=== PATIENT | male | born 1935 | race Caucasian/White ===

== ENCOUNTER 2022-01-14 20:23 | Inpatient (IN) | payer MEDICARE ==
[2022-01-14] MEDS ORDERED: SODIUM CHLORIDE 0.9% 1,000 ML IV STA ×2 (21:33)
--- NOTE | 2022-01-14 22:00 | XR ---
EXAMINATION: XR chest 1V portable DATE AND TIME: 01/14/2022 9:43 PM CLINICAL INDICATION: Covid + TECHNIQUE: AP upright portable COMPARISON: None FINDINGS: Cardiac silhouette within normal limits. Blunted right cost phrenic angle and homogeneously added opacity at the right lower hemithorax consis tent with [id number] right pleural effusion, associated with partial right lower lobe airlessne ss, passive atelectasis versus infiltration. Remainder of the right lung is clear and well expanded. The entire left lung is clear and well-expanded, and the left pleural space is negative. The skeletal structures and soft tissues are negative for acute findings. IMPRESSION: Right lower parenchymal pleural process; would suggest short interval follow-up PA and lateral chest radiography.
--- NOTE | 2022-01-14 22:17 | ED ---
Recheck HPI - General Chief Complaint: Recheck/Abnormal Lab/Rx Stated Complaint: Covid +,High Blood Sugar Time Seen by Provider: 01/14/22 21:26 Source: EMS, RN notes reviewed, old records reviewed, Caregiver Mode of arrival: EMS Limitations: no limitations - History of Present Illness Initial Comments: This is a 86-year-old male to the emergency department for evaluation. Presents by EMS for known diagnosis of coronavirus and significantly uncontrolled blood sugar at an extended Care facility. A she'll himself is generally feeling weak and ill. But has no complaints of chest pain headache shortness of breath or abdominal pain. No nausea vomiting or diarrhea MD Complaint: abnormal lab (Elevated blood sugar), other (Known diagnosis of coronavirus) -: days(s) Returns Today for: Called Because of Abnormal Lab/Test, persistent/worsening pain related to initial visit Symptoms Since Prior Visit: worsening pain (Weakness) Context: called for abnormal lab result Associated Symptoms: chills, nausea Treatments Prior to Arrival: other medications - Related Data Home Medications Medication Instructions Recorded Confirmed Acetaminophen Tab [Tylenol] 650 mg PO Q4H PRN 01/14/22 01/14/22 Apixaban [Eliquis] 2.5 mg PO BID 01/14/22 01/14/22 Ascorbic Acid [Vitamin C] 500 mg PO DAILY 01/14/22 01/14/22 Cholecalciferol [Vitamin D3 (25 50 mcg PO DAILY 01/14/22 01/14/22 Mcg = 1000 Iu)] Digoxin [Lanoxin] 125 mcg PO DAILY@59901/14/22 01/14/22 Ferrous Sulfate [Iron] 325 mg PO DAILY 01/14/22 01/14/22 Glimepiride [Amaryl] 4 mg PO DAILY 01/14/22 01/14/22 Glucerna Shake 1 can PO TID 01/14/22 01/14/22 Insulin Lispro [humaLOG Kwikpen] See Protocol SQ ACHS 01/14/22 01/14/22 Levothyroxine Sodium [Synthroid] 100 mcg PO DAILY@59901/14/22 01/14/22 Linagliptin [Tradjenta] 5 mg PO DAILY 01/14/22 01/14/22 Lisinopril [Prinivil] 10 mg PO DAILY 01/14/22 01/14/22 Methyl Salicylate/Menth/Camph 1 patch TOPICAL DAILY 01/14/22 01/14/22 [Salonpas 3.1%-6.0%-10.0% Patch] Multivitamins, Thera [Multivitamin 1 tab PO DAILY 01/14/22 01/14/22 (formulary)] Nirmatrelvir/Ritonavir [Paxlovid 1 tab PO BID 01/14/22 01/14/22 Co-Pack (Eua)] Pravastatin Sodium [Pravachol] 40 mg PO HS 01/14/22 01/14/22 Propylene Glycol/Peg 400/Pf 1 drop BOTH EYES TID@0600,1400,2200 01/14/22 01/14/22 [Systane 0.3-0.4% Eye Drop] Pseudoephedrine HCl [Sudafed] 30 mg PO TID 01/14/22 01/14/22 Vit C/E/Zn/Coppr/Lutein/Zeaxan 1 cap PO DAILY 01/14/22 01/14/22 [Preservision Areds 2 Softgel] Zinc 50 mg PO DAILY 01/14/22 01/14/22 dexAMETHasone 6 mg PO DAILY 01/14/22 01/14/22 Allergies Allergy/AdvReac Type Severity Reaction Status Date / Time No Known Allergies Allergy Verified 01/14/22 22:58 Review of Systems ROS Statement: Those systems with pertinent positive or pertinent negative responses have been documented in the HPI. ROS Other: All systems not noted in ROS Statement are negative. Past Medical History Past Medical History: Atrial Fibrillation, Diabetes Mellitus, Hyperlipidemia Additional Past Medical History / Comment(s): dysphagia History of Any Multi-Drug Resistant Organisms: None Reported Past Psychological History: No Psychological Hx Reported Smoking Status: Never smoker Past Alcohol Use History: None Reported Past Drug Use History: None Reported General Exam Limitations: no limitations General appearance: alert, in no apparent distress Head exam: Present: atraumatic, normocephalic, normal inspection Eye exam: Present: normal appearance, PERRL, EOMI. Absent: scleral icterus, conjunctival injection, periorbital swelling ENT exam: Present: normal exam, mucous membranes dry Neck exam: Present: normal inspection. Absent: tenderness, meningismus, lymphadenopathy Respiratory exam: Present: normal lung sounds bilaterally. Absent: respiratory distress, wheezes, rales, rhonchi, stridor Cardiovascular Exam: Present: normal rhythm, tachycardia, normal heart sounds. Absent: systolic murmur, diastolic murmur, rubs, gallop, clicks GI/Abdominal exam: Present: soft, normal bowel sounds. Absent: distended, tenderness, guarding, rebound, rigid Extremities exam: Present: normal inspection, full ROM, normal capillary refill. Absent: tenderness, pedal edema, joint swelling, calf tenderness Back exam: Present: normal inspection Neurological exam: Present: alert, oriented X3, CN II-XII intact Psychiatric exam: Present: normal affect, normal mood Skin exam: Present: warm, dry, intact, normal color. Absent: rash Course Vital Signs 01/14/22 21:08 Temperature 98 F Pulse Rate 107 H Respiratory 16 Rate Blood Pressure 135/70 O2 Sat by Pulse 98 Oximetry - Reevaluation(s) Reevaluation #1: 01/14/22 23:10 Medical record is reviewed Reevaluation #2: 01/14/22 23:10 Patient informed of results here in the ER Reevaluation #3: 01/14/22 23:10 Patient has no change in symptoms no significant shortness of breath - Consultations Consultation #1: Spoke with Dr. Wolff for Dr. Linares who will admit this patient Medical Decision Making - Medical Decision Making 86 male with multiple complaints and medical comorbidities. Hyperglycemia significant no signs of acidosis. Patient will be placed on sliding scale for insulin IV hydration and monitoring of coronavirus pneumonia. - Lab Data Result diagrams: 01/14/22 21:55 01/14/22 21:55 Lab Results 01/14/22 01/14/22 01/14/22 Range/Units 21:55 21:55 21:55 WBC 2.3 L (3.8-10.6) k/uL RBC 3.43 L (4.30-5.90) m/uL Hgb 10.9 L (13.0-17.5) gm/dL Hct 34.7 L (39.0-53.0) % MCV 101.0 H (80.0-100.0) fL MCH 31.8 (25.0-35.0) pg MCHC 31.5 (31.0-37.0) g/dL RDW 14.7 (11.5-15.5) % Plt Count 159 (150-450) k/uL MPV 8.7 Neutrophils % 81 % Lymphocytes % 13 % Monocytes % 5 % Eosinophils % 0 % Basophils % 0 % Neutrophils # 1.9 (1.3-7.7) k/uL Lymphocytes # 0.3 L (1.0-4.8) k/uL Monocytes # 0.1 (0-1.0) k/uL Eosinophils # 0.0 (0-0.7) k/uL Basophils # 0.0 (0-0.2) k/uL Hypochromasia Slight Poikilocytosis Slight Macrocytosis Slight PT 9.6 (9.0-12.0) sec INR 0.9 (<1.2) APTT 22.3 (22.0-30.0) sec VBG pH (7.31-7.41) VBG pCO2 (37-51) mmHg VBG HCO3 (24-28) mmol/L Sodium 131 L (137-145) mmol/L Potassium 4.9 (3.5-5.1) mmol/L Chloride 98 (98-107) mmol/L Carbon Dioxide 22 (22-30) mmol/L Anion Gap 11 mmol/L BUN 57 H (9-20) mg/dL Creatinine 1.01 (0.66-1.25) mg/dL Est GFR (CKD-EPI)AfAm 78 (>60 ml/min/1.73 sqM) Est GFR (CKD-EPI)NonAf 68 (>60 ml/min/1.73 sqM) Glucose 599 H* (74-99) mg/dL Plasma Lactic Acid Zay (0.7-2.0) mmol/L Calcium 8.1 L (8.4-10.2) mg/dL Phosphorus 3.4 (2.5-4.5) mg/dL Magnesium 2.0 (1.6-2.3) mg/dL Total Bilirubin 0.4 (0.2-1.3) mg/dL AST 46 (17-59) U/L ALT 42 (4-49) U/L Alkaline Phosphatase 185 H (38-126) U/L Troponin I (0.000-0.034) ng/mL C-Reactive Protein 2.0 H (<1.0) mg/dL NT-Pro-B Natriuret Pep pg/mL Total Protein 6.4 (6.3-8.2) g/dL Albumin 3.5 (3.5-5.0) g/dL Acetone, Qual Negative (Negative) 01/14/22 01/14/22 01/14/22 Range/Units 21:55 21:55 21:55 WBC (3.8-10.6) k/uL RBC (4.30-5.90) m/uL Hgb (13.0-17.5) gm/dL Hct (39.0-53.0) % MCV (80.0-100.0) fL MCH (25.0-35.0) pg MCHC (31.0-37.0) g/dL RDW (11.5-15.5) % Plt Count (150-450) k/uL MPV Neutrophils % % Lymphocytes % % Monocytes % % Eosinophils % % Basophils % % Neutrophils # (1.3-7.7) k/uL Lymphocytes # (1.0-4.8) k/uL Monocytes # (0-1.0) k/uL Eosinophils # (0-0.7) k/uL Basophils # (0-0.2) k/uL Hypochromasia Poikilocytosis Macrocytosis PT (9.0-12.0) sec INR (<1.2) APTT (22.0-30.0) sec VBG pH (7.31-7.41) VBG pCO2 (37-51) mmHg VBG HCO3 (24-28) mmol/L Sodium (137-145) mmol/L Potassium (3.5-5.1) mmol/L Chloride (98-107) mmol/L Carbon Dioxide (22-30) mmol/L Anion Gap mmol/L BUN (9-20) mg/dL Creatinine (0.66-1.25) mg/dL Est GFR (CKD-EPI)AfAm (>60 ml/min/1.73 sqM) Est GFR (CKD-EPI)NonAf (>60 ml/min/1.73 sqM) Glucose (74-99) mg/dL Plasma Lactic Acid Zay 3.0 H* (0.7-2.0) mmol/L Calcium (8.4-10.2) mg/dL Phosphorus (2.5-4.5) mg/dL Magnesium (1.6-2.3) mg/dL Total Bilirubin (0.2-1.3) mg/dL AST (17-59) U/L ALT (4-49) U/L Alkaline Phosphatase (38-126) U/L Troponin I 0.057 H* (0.000-0.034) ng/mL C-Reactive Protein (<1.0) mg/dL NT-Pro-B Natriuret Pep 3780 pg/mL Total Protein (6.3-8.2) g/dL Albumin (3.5-5.0) g/dL Acetone, Qual (Negative) 01/14/22 Range/Units 21:55 WBC (3.8-10.6) k/uL RBC (4.30-5.90) m/uL Hgb (13.0-17.5) gm/dL Hct (39.0-53.0) % MCV (80.0-100.0) fL MCH (25.0-35.0) pg MCHC (31.0-37.0) g/dL RDW (11.5-15.5) % Plt Count (150-450) k/uL MPV Neutrophils % % Lymphocytes % % Monocytes % % Eosinophils % % Basophils % % Neutrophils # (1.3-7.7) k/uL Lymphocytes # (1.0-4.8) k/uL Monocytes # (0-1.0) k/uL Eosinophils # (0-0.7) k/uL Basophils # (0-0.2) k/uL Hypochromasia Poikilocytosis Macrocytosis PT (9.0-12.0) sec INR (<1.2) APTT (22.0-30.0) sec VBG pH 7.35 (7.31-7.41) VBG pCO2 40 (37-51) mmHg VBG HCO3 22 L (24-28) mmol/L Sodium (137-145) mmol/L Potassium (3.5-5.1) mmol/L Chloride (98-107) mmol/L Carbon Dioxide (22-30) mmol/L Anion Gap mmol/L BUN (9-20) mg/dL Creatinine (0.66-1.25) mg/dL Est GFR (CKD-EPI)AfAm (>60 ml/min/1.73 sqM) Est GFR (CKD-EPI)NonAf (>60 ml/min/1.73 sqM) Glucose (74-99) mg/dL Plasma Lactic Acid Zay (0.7-2.0) mmol/L Calcium (8.4-10.2) mg/dL Phosphorus (2.5-4.5) mg/dL Magnesium (1.6-2.3) mg/dL Total Bilirubin (0.2-1.3) mg/dL AST (17-59) U/L ALT (4-49) U/L Alkaline Phosphatase (38-126) U/L Troponin I (0.000-0.034) ng/mL C-Reactive Protein (<1.0) mg/dL NT-Pro-B Natriuret Pep pg/mL Total Protein (6.3-8.2) g/dL Albumin (3.5-5.0) g/dL Acetone, Qual (Negative) - EKG Data -: EKG Interpreted by Me (EKG is sinus rhythm 96 MD 215 QRS 94 QTC 376) - Radiology Data Radiology results: report reviewed (Chest x-ray does show pneumonia likely coronavirus pneumonia), image reviewed Disposition Clinical Impression: Fever, Coronavirus infection, Hyperglycemia, Pneumonia due to COVID-19 virus, Elevated troponin Disposition: ADMITTED IP TO THIS HOSP Condition: Fair Is patient prescribed a controlled substance at d/c from ED?: No Referrals: Mara Lopez MD [Primary Care Provider] - 1-2 days Time of Disposition: 23:15
[2022-01-14] MEDS ORDERED: KETOROLAC 15 MG/ML 1 ML VIAL IVP STA (22:20)
[2022-01-14 22:27] LABS: VBG PH 7.35 (7.31-7.41)
[2022-01-14 22:30] LABS: Basophils % (A) 0 %; Eosinophils % (A) 0 %; HCT 34.7 % (39.0-53.0); HGB 10.9 gm/dL (13.0-17.5); Hypochromasia Slight; Lymphocytes # (A) 0.3 k/uL (1.0-4.8); Lymphocytes % (A) 13 %; MCH 31.8 pg (25.0-35.0); MCHC 31.5 g/dL (31.0-37.0); Macrocytosis Slight; Mean Platelet Volume 8.7; Monocytes # (A) 0.1 k/uL (0-1.0); Monocytes % (A) 5 %; Neutrophils # (A) 1.9 k/uL (1.3-7.7); Neutrophils % (A) 81 %; Platelet Count 159 k/uL (150-450); Poikilocytosis Slight; RBC 3.43 m/uL (4.30-5.90); RDW 14.7 % (11.5-15.5); WBC 2.3 k/uL (3.8-10.6)
[2022-01-14] MEDS: ACETAMINOPHEN TAB 500 MG TAB PO STA ×2 (22:37→22:46)
[2022-01-14 22:46] LABS: ALT 42 U/L (4-49); AST 46 U/L (17-59); African American GFR (CKD) 78 (>60 ml/min/1.73 sqM); Albumin 3.5 g/dL (3.5-5.0); Alkaline Phosphatase 185 U/L (38-126); Anion Gap 11 mmol/L; Blood Urea Nitrogen 57 mg/dL (9-20); Calcium 8.1 mg/dL (8.4-10.2); Carbon Dioxide 22 mmol/L (22-30); Chloride 98 mmol/L (98-107); Non-African American GFR(CKD) 68 (>60 ml/min/1.73 sqM); Phosphorus 3.4 mg/dL (2.5-4.5); Potassium 4.9 mmol/L (3.5-5.1); Sodium 131 mmol/L (137-145); Total Bilirubin 0.4 mg/dL (0.2-1.3); Total Protein 6.4 g/dL (6.3-8.2)
[2022-01-14 22:50] LABS: INR 0.9 (<1.2); Partial Thromboplastin Time 22.3 sec (22.0-30.0); Prothrombin Time 9.6 sec (9.0-12.0)
[2022-01-14 23:11] LABS: Glucose 599 mg/dL (74-99)
[2022-01-14] MEDS ORDERED: IBUPROFEN 400 MG TAB PO PRN (23:12)
[2022-01-14] MEDS ORDERED: ACETAMINOPHEN TAB 325 MG TAB PO PRN (23:12)
[2022-01-14] MEDS ORDERED: SODIUM CHLORIDE 0.9% 500 ML 500 ML IV STA (23:12)
[2022-01-14] MEDS ORDERED: LORazepam 2 MG/ML INJ IV PRN (23:12)
[2022-01-14] MEDS ORDERED: NALOXONE 0.4 MG/ML 1 ML VIAL IV PRN (23:12)
[2022-01-14] MEDS ORDERED: INSULIN REGULAR 100 UNIT/ML VIAL (IV) IV ONE (23:12)
[2022-01-15 00:27] LABS: Glucose,Whole Blood 547 mg/dL (75-99)
[2022-01-15 01:23] LABS: Appearance,Urine Clear (Clear); Bilirubin,Urine Negative (Negative); Blood,Urine Negative (Negative); Color,Urine Light Yellow; Glucose,Urine (UA) 4+ (Negative); Ketones,Urine Negative (Negative); Leukocyte Esterase,Urine Negative (Negative); Nitrite,Urine Negative (Negative); PH, Urine 5.5 (5.0-8.0); Protein,Urine Trace (Negative); Specific Gravity,Urine 1.016 (1.001-1.035); Urobilinogen,Urine <2.0 mg/dL (<2.0)
[2022-01-15 01:49] LABS: Glucose,Whole Blood 401 mg/dL (75-99)
[2022-01-15] MEDS ORDERED: ACETAMINOPHEN TAB 325 MG TAB PO PRN (05:45)
[2022-01-15 06:04] LABS: Basophils % (A) 1 %; Eosinophils % (A) 0 %; HCT 31.4 % (39.0-53.0); HGB 10.2 gm/dL (13.0-17.5); Lymphocytes # (A) 0.5 k/uL (1.0-4.8); Lymphocytes % (A) 23 %; MCH 32.1 pg (25.0-35.0); MCHC 32.3 g/dL (31.0-37.0); MCV 99.5 fL (80.0-100.0); Macrocytosis Slight; Mean Platelet Volume 8.1; Monocytes # (A) 0.1 k/uL (0-1.0); Monocytes % (A) 6 %; Neutrophils # (A) 1.5 k/uL (1.3-7.7); Neutrophils % (A) 69 %; Platelet Count 119 k/uL (150-450); Poikilocytosis Slight; RBC 3.16 m/uL (4.30-5.90); RDW 14.6 % (11.5-15.5); WBC 2.2 k/uL (3.8-10.6)
[2022-01-15 06:09] LABS: Glucose,Whole Blood 392 mg/dL (75-99)
[2022-01-15 06:16] LABS: Calcium 7.7 mg/dL (8.4-10.2); Phosphorus 3.3 mg/dL (2.5-4.5); Potassium 4.7 mmol/L (3.5-5.1); Total Bilirubin 0.3 mg/dL (0.2-1.3); Total Protein 5.7 g/dL (6.3-8.2)
[2022-01-15] MEDS: LEVOTHYROXINE 100 MCG TAB PO SCH (06:44)
[2022-01-15] MEDS: DIGOXIN 125 MCG TAB PO SCH (06:44)
[2022-01-15] MEDS: INSULIN ASPART (NovoLOG) 100 UNIT/ML VIAL SQ SCH ×7 (06:44→21:27)
[2022-01-15] MEDS: ARTIFICIAL TEARS-HYPROMELLOSE DROPS 15 ML BTL BOTH EYES SCH ×3 (06:45→21:28)
[2022-01-15] MEDS: PANTOPRAZOLE 40 MG TABLET PO SCH (06:46)
[2022-01-15] MEDS ORDERED: INSULIN ASPART (NovoLOG) 100 UNIT/ML VIAL SQ SCH (07:30)
[2022-01-15] MEDS ORDERED: dexAMETHasone 2 MG TAB PO SCH (09:00)
[2022-01-15] MEDS ORDERED: NON FORMULARY DRUG (Glucerna Shake 1 CAN Ml) PO SCH (09:00)
[2022-01-15] MEDS: MULTIVITAMINS, THERA 1 EACH TAB PO SCH (10:01)
[2022-01-15] MEDS: CHOLECALCIFEROL 25 MCG (1000 IU) TABLET PO SCH (10:01)
[2022-01-15] MEDS: ZINC SULFATE 220 MG CAP PO SCH (10:01)
[2022-01-15] MEDS: LINAGLIPTIN 5 MG TABLET PO SCH (10:02)
[2022-01-15] MEDS: lisinopriL 10 MG TAB PO SCH (10:02)
[2022-01-15] MEDS: APIXABAN 2.5 MG TABLET PO SCH ×2 (10:02→21:27)
[2022-01-15] MEDS: FERROUS SULFATE 325 MG TAB PO SCH (10:02)
[2022-01-15] MEDS: RITONAVIR PO SCH ×2 (10:07→21:28)
[2022-01-15] MEDS: GLIMEPIRIDE 4 MG TAB PO SCH (10:07)
[2022-01-15] MEDS: VIT A,C & E-LUTEIN-MINERALS 1 EACH TAB PO SCH (10:07)
[2022-01-15] MEDS: ASCORBIC ACID 500 MG TAB PO SCH (10:07)
[2022-01-15] MEDS: NIRMATRELVIR PO SCH ×2 (10:07→21:28)
[2022-01-15 10:34] LABS: Glucose,Whole Blood 323 mg/dL (75-99)
[2022-01-15] MEDS: INSULIN DETEMIR (LEVEMIR) 100 UNIT/ML SYR SQ SCH (11:18)
--- NOTE | 2022-01-15 11:23 | CA ---
Transthoracic Echo Report Name: Florentino Gu Age: 86 Gender: M : 1935 Exam Date: 01/15/2022 09:55 Exam Location: [facility] Ht (in): Wt (lb): Ordering Physician: Marcia Kim Attending/Referring Phys: Conveyor Worker Kristin Cates RDCS Procedure CPT: Indications: elevated troponin Cardiac Hx: PT IS COVID POSITIVE. Technical Quality: Fair Contrast 1: Total Dose (mL): Contrast 2: Total Dose (mL): MEASUREMENTS (Male / Female) Normal Values 2D ECHO LV Diastolic Diameter PLAX 3.7 cm 4.2 - 5.9 / 3.9 - 5.3 cm LV Systolic Diameter PLAX 3.0 cm IVS Diastolic Thickness 1.8 cm 0.6 - 1.0 / 0.6 - 0.9 cm LVPW Diastolic Thickness 1.6 cm 0.6 - 1.0 / 0.6 - 0.9 cm LV Relative Wall Thickness 0.9 RV Internal Dim ED PLAX 5.4 cm LA Systolic Diameter LX 3.6 cm 3.0 - 4.0 / 2.7 - 3.8 cm M-MODE Aortic Root Diameter MM 2.6 cm LA Systolic Diameter MM 4.1 cm LA Ao Ratio MM 1.6 DOPPLER AV Peak Velocity 411.9 cm/s AV Peak Gradient 67.9 mmHg AV Mean Velocity 289.5 cm/s AV Mean Gradient 38.7 mmHg AV Velocity Time Integral 98.8 cm LVOT Peak Velocity 58.9 cm/s LVOT Peak Gradient 1.4 mmHg MV Peak Velocity 178.8 cm/s MV Peak Gradient 12.8 mmHg MV Mean Velocity 94.4 cm/s MV Mean Gradient 4.7 mmHg MV Velocity Time Integral 48.1 cm MV Area PHT 2.6 cm??? Mitral E Point Velocity 58.2 cm/s Mitral A Point Velocity 146.0 cm/s Mitral E to A Ratio 0.4 MV Deceleration Time 293.5 ms FINDINGS Left Ventricle Left ventricular ejection fraction is estimated at 50-55%. Moderately increased left ventricular wall thickness. Right Ventricle Normal right ventricular size and function. Right Atrium Normal right atrial size. Left Atrium Moderate left atrial dilatation. Mitral Valve 4.7mmHg. Mild mitral regurgitation. Aortic Valve Severe aortic stenosis, peak gradient 68 mmHg, mean gradient 39 mmHg, mild-to- moderate aortic regurgitation. Tricuspid Valve Structurally normal tricuspid valve. Pulmonic Valve Pulmonic valve not well visualized. Pericardium Normal pericardium. Aorta Aortic root and proximal ascending aorta not well visualized. CONCLUSIONS #1. Moderate concentric left ventricular hypertrophy with near normal ejection fraction of about 50%. #2. Calcified mitral valve with the mild to moderate gradient. #3. Calcified aortic valve with severe stenosis Previewed by: Dr. Jeyson Roberts MD (Electronically Signed) Final Date: 15 January 2022 11:22
[2022-01-15 11:44] LABS: Glucose,Whole Blood 301 mg/dL (75-99)
--- NOTE | 2022-01-15 12:28 | P.HPIM ---
History of Present Illness H&P Date: 01/15/22 HISTORY OF PRESENT ILLNESS This is an 86-year-old male patient of Dr. Hughes with past medical history of Diabetes mellitus type 2, hypertension, hyperlipidemia, paroxysmal atrial fibrillation, dysphagia, polio affecting the right side. Patient was treated at [facility] after a fall where he laid on the ground for 3 days. Police had to break into his home to get him out. There was loss of consciousness and he had hit his head. Patient was treated at [facility] and then transferred to [facility] for subacute rehab. Patient was subsequently found to be positive test for Covid 19 and was started on Paxlovid, dexamethasone, vitamin C and zinc. Patient subsequently developed a high blood sugar which registered as "HI" on 2 draws, patient received additional 12 units of Humulin insulin at suppertime but again when rechecked CBG was high and patient was transferred into the hospital for further evaluation. Patient denies any symptoms of Covid. Patient was found to be afebrile, heart rate 107, blood pressure 135/70, pulse ox 90% on room air. EKG sinus rhythm WBC 2.3, hemoglobin 10.9, platelet count 159. INR 0.9. Venous pH 7.35, venous pCO2 40, bicarbonate 22. Sodium 131, potassium 4.9, chloride 98, CO2 22, BUN 57 creatinine 1.01. Blood sugar 599. Lactic acid 3, calcium 8.1. Magnesium 2.0. Total bilirubin 0.4, AST 46, ALT 42, alkaline phosphatase 185. Troponins were 0.057, 0.056 and 0.058. C-reactive protein 2.0. ProBNP 3780. Albumin 3.5. Urinalysis was glucose to 4+ no sign of infection. Acetone was negative. Rotavirus PCR detected. Chest x-ray reveals right lower potential mild pleural process was suggestion interval follow-up. Echocardiogram reveals moderate concentric left hypertrophy ejection fraction 50%, [id number] mitral regurgitation, severe aortic stenosis. Patient was admitted to the cardiac stepdown unit, patient started on Levemir and continued on Paxlovid, dexamethasone which will be decreased to 4 mg daily, vitamin C and zinc, consult with cardiology for elevated troponins, pulmonary medicine for Covid and [facility] Center[facility] consult added for lower extremity wounds present on admission, REVIEW OF SYSTEMS Constitutional: No fever, no chills, no night sweats. No weight change. No we akness, fatigue or lethargy. No daytime sleepiness. EENT: No headache. No blurred vision or double vision, no loss of vision. No loss of Hearing, no ringing in the ears, no dizziness. No nasal drainage or congestion. No epistaxis. No sore throat. Lungs: No shortness of breath, cough, no sputum production. No wheezing. Cardiovascular: No chest pain, no lower extremity edema. No palpitations. No paroxysmal nocturnal dyspnea. No orthopnea. No lightheadedness or dizziness. No syncopal episodes. Abdominal: No abdominal pain. No nausea, vomiting. No diarrhea. No constipation. No bloody or tarry stools. No loss of appetite. Genitourinary: No dysuria, increased frequency, urgency. No urinary retention. Musculoskeletal: No myalgias. No muscle weakness, no gait dysfunction, no stanton quent falls. No back pain. No neck pain. Integumentary: Chronic wounds, no lesions. No rash or pruritus. No unusual bruising. No change in hair or nails. Neurologic: No aphasia. No facial droop. No change in mentation. No head injury. No headache. No paralysis. No paresthesia. Psychiatric: No depression. No anxiety. No mood swings. Endocrine: Reports abnormal blood sugars. No weight change. No excessive sweating or thirst. No cold intolerance. SOCIAL HISTORY Patient is a lifelong nonsmoker, no alcohol use. He is single and has no children. 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 Patient has a total of 7 brothers and 2 sisters all are .. PHYSICAL EXAMINATION Gen: This is an 86-year-old male. He is resting but appears to be comfortable and in no acute distress. HEENT: Head is atraumatic, normocephalic. Pupils equal, round. Sclerae is anicteric. NECK: Supple. No JVD. No lymphadenopathy. No thyromegaly. LUNGS: Clear to auscultation. No wheezes or rhonchi. No intercostal retractions. HEART: Regular rate and rhythm. No murmur. ABDOMEN: Soft. Bowel sounds are present. No masses. No tenderness. EXTREMITIES: wounds to the bilateral lower extremities, chronic stasis dermatitis, wound to the right shoulder. Please see nursing documentation for details. No pedal edema. NEUROLOGICAL: Patient is awake, alert and oriented x3. Cranial nerves 2 through 12 are grossly intact. 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 ASSESSMENT AND PLAN 1. Hyperosmolar hyperglycemic state in a patient with diabetes mellitus type 2 secondary to steroids. Patient will be started on Levemir 15 units daily along with NovoLog 10 units before meals and at bedtime along with NovoLog scale before meals and at bedtime, glimepiride 4 mg daily, Tradjenta 5 mg daily. (Dexamethasone decreased). 2. Covid 19 positive. Patient was started on Paxlovid, dexamethasone, vitamin C, vitamin D and zinc at [facility]. Dexamethasone will be decreased to 4 mg daily, consult with Pulmonary Medicine. 3. Hypertension. Continue lisinopril 10 mg daily. 4. Hyperlipidemia. Patient continued on Pravastatin mg at . 5. Paroxysmal atrial fibrillation. continue patient on eliquis 2.5 mg twice daily, digoxin 125 g daily. 6. Dysphagia with moderate protein calorie malnutrition. Patient is on a pured diet with nectar thick liquids and continue protein supplements. 7. Polio affecting right. 8. Chronic stasis dermatitis and ulcers to the bilateral lower extremities. Consult with wound center. 9. GI prophylaxis. Protonix. 10. DVT prophylaxis. Eliquis. Patient will be admitted to the hospital for a minimum of 2 night stay. DISCHARGE PLAN Return to [facility]. PT, OT and social work consults. Impression and plan of care have been directed as dictated by the signing physician. Kori Martinez nurse practitioner acting as scribe for signing physician. Past Medical History Past Medical History: Atrial Fibrillation, Diabetes Mellitus, Hyperlipidemia Additional Past Medical History / Comment(s): dysphagia, polio History of Any Multi-Drug Resistant Organisms: None Reported Past Surgical History: Orthopedic Surgery Additional Past Surgical History / Comment(s): feet and carpal tunnel Additional Past Anesthesia/Blood Transfusion Reaction / Comment(s): patient unaware Past Psychological History: No Psychological Hx Reported Smoking Status: Never smoker Past Alcohol Use History: None Reported Past Drug Use History: None Reported Medications and Allergies Home Medications Medication Instructions Recorded Confirmed Type Acetaminophen Tab [Tylenol] 650 mg PO Q4H PRN 06/09/22 06/09/22 History Apixaban [Eliquis] 2.5 mg PO BID 01/14/22 01/14/22 History Ascorbic Acid [Vitamin C] 500 mg PO DAILY 01/14/22 01/14/22 History Cholecalciferol [Vitamin D3 (25 50 mcg PO DAILY 01/14/22 01/14/22 History Mcg = 1000 Iu)] Digoxin [Lanoxin] 125 mcg PO DAILY@0600 01/14/22 01/14/22 History Ferrous Sulfate [Iron] 325 mg PO DAILY 01/14/22 01/14/22 History Glimepiride [Amaryl] 4 mg PO DAILY 01/14/22 01/14/22 History Glucerna Shake 1 can PO TID 01/14/22 01/14/22 History Insulin Lispro [humaLOG Kwikpen] See Protocol SQ ACHS 01/14/22 01/14/22 History Levothyroxine Sodium [Synthroid] 100 mcg PO DAILY@0600 01/14/22 01/14/22 History Linagliptin [Tradjenta] 5 mg PO DAILY 01/14/22 01/14/22 History Lisinopril [Prinivil] 10 mg PO DAILY 01/14/22 01/14/22 History Methyl Salicylate/Menth/Camph 1 patch TOPICAL DAILY 01/14/22 01/14/22 History [Salonpas 3.1%-6.0%-10.0% Patch] Multivitamins, Thera [Multivitamin 1 tab PO DAILY 01/14/22 01/14/22 History (formulary)] Nirmatrelvir/Ritonavir [Paxlovid 1 tab PO BID 01/14/22 01/14/22 History Co-Pack (Eua)] Pravastatin Sodium [Pravachol] 40 mg PO HS 01/14/22 01/14/22 History Propylene Glycol/Peg 400/Pf 1 drop BOTH EYES TID@0600,1400,2200 01/14/22 01/14/22 History [Systane 0.3-0.4% Eye Drop] Pseudoephedrine HCl [Sudafed] 30 mg PO TID 01/14/22 01/14/22 History Vit C/E/Zn/Coppr/Lutein/Zeaxan 1 cap PO DAILY 01/14/22 01/14/22 History [Preservision Areds 2 Softgel] Zinc 50 mg PO DAILY 01/14/22 01/14/22 History dexAMETHasone 6 mg PO DAILY 01/14/22 01/14/22 History Allergies Allergy/AdvReac Type Severity Reaction Status Date / Time No Known Allergies Allergy Verified 01/14/22 22:58 Physical Exam Vitals: Vital Signs Temp Pulse Pulse Resp BP BP Pulse Ox 01/15/22 04:00 97.7 F 85 14 132/64 98 01/15/22 02:04 87 16 122/62 99 01/15/22 00:33 90 18 124/62 100 01/14/22 23:35 97.4 F L 86 18 114/57 100 01/14/22 21:08 98 F 107 H 16 135/70 98 Intake and Output 01/14/22 01/15/22 01/15/22 22:59 06:59 14:59 Intake Total 0 Balance 0 Intake: Oral 0 Other: Voiding Method Urinal Diaper # Voids 1 Weight 64.41 kg 64.41 kg Results CBC & Chem 7: 01/15/22 05:46 01/15/22 05:46 Labs: Abnormal Lab Results - Last 24 Hours (Table) 01/14/22 01/14/22 01/14/22 Range/Units 21:55 21:55 21:55 WBC 2.3 L (3.8-10.6) k/uL RBC 3.43 L (4.30-5.90) m/uL Hgb 10.9 L (13.0-17.5) gm/dL Hct 34.7 L (39.0-53.0) % MCV 101.0 H (80.0-100.0) fL Plt Count (150-450) k/uL Lymphocytes # 0.3 L (1.0-4.8) k/uL VBG HCO3 (24-28) mmol/L Sodium 131 L (137-145) mmol/L Carbon Dioxide (22-30) mmol/L BUN 57 H (9-20) mg/dL Glucose 599 H* (74-99) mg/dL POC Glucose (mg/dL) (75-99) mg/dL Plasma Lactic Acid Zay 3.0 H* (0.7-2.0) mmol/L Calcium 8.1 L (8.4-10.2) mg/dL Alkaline Phosphatase 185 H (38-126) U/L Troponin I (0.000-0.034) ng/mL C-Reactive Protein 2.0 H (<1.0) mg/dL Total Protein (6.3-8.2) g/dL Albumin (3.5-5.0) g/dL Urine Protein (Negative) Urine Glucose (UA) (Negative) Coronavirus (PCR) (Not Detectd) 01/14/22 01/14/22 01/15/22 Range/Units 21:55 21:55 00:26 WBC (3.8-10.6) k/uL RBC (4.30-5.90) m/uL Hgb (13.0-17.5) gm/dL Hct (39.0-53.0) % MCV (80.0-100.0) fL Plt Count (150-450) k/uL Lymphocytes # (1.0-4.8) k/uL VBG HCO3 22 L (24-28) mmol/L Sodium (137-145) mmol/L Carbon Dioxide (22-30) mmol/L BUN (9-20) mg/dL Glucose (74-99) mg/dL POC Glucose (mg/dL) 547 H (75-99) mg/dL Plasma Lactic Acid Zay (0.7-2.0) mmol/L Calcium (8.4-10.2) mg/dL Alkaline Phosphatase (38-126) U/L Troponin I 0.057 H* (0.000-0.034) ng/mL C-Reactive Protein (<1.0) mg/dL Total Protein (6.3-8.2) g/dL Albumin (3.5-5.0) g/dL Urine Protein (Negative) Urine Glucose (UA) (Negative) Coronavirus (PCR) (Not Detectd) 01/15/22 01/15/22 01/15/22 Range/Units 00:38 01:03 01:05 WBC (3.8-10.6) k/uL RBC (4.30-5.90) m/uL Hgb (13.0-17.5) gm/dL Hct (39.0-53.0) % MCV (80.0-100.0) fL Plt Count (150-450) k/uL Lymphocytes # (1.0-4.8) k/uL VBG HCO3 (24-28) mmol/L Sodium (137-145) mmol/L Carbon Dioxide (22-30) mmol/L BUN (9-20) mg/dL Glucose (74-99) mg/dL POC Glucose (mg/dL) (75-99) mg/dL Plasma Lactic Acid Zay (0.7-2.0) mmol/L Calcium (8.4-10.2) mg/dL Alkaline Phosphatase (38-126) U/L Troponin I 0.056 H* (0.000-0.034) ng/mL C-Reactive Protein (<1.0) mg/dL Total Protein (6.3-8.2) g/dL Albumin (3.5-5.0) g/dL Urine Protein Trace H (Negative) Urine Glucose (UA) 4+ H (Negative) Coronavirus (PCR) Detected A (Not Detectd) 01/15/22 01/15/22 01/15/22 Range/Units 01:37 01:45 05:46 WBC (3.8-10.6) k/uL RBC (4.30-5.90) m/uL Hgb (13.0-17.5) gm/dL Hct (39.0-53.0) % MCV (80.0-100.0) fL Plt Count (150-450) k/uL Lymphocytes # (1.0-4.8) k/uL VBG HCO3 (24-28) mmol/L Sodium (137-145) mmol/L Carbon Dioxide (22-30) mmol/L BUN (9-20) mg/dL Glucose (74-99) mg/dL POC Glucose (mg/dL) 401 H (75-99) mg/dL Plasma Lactic Acid Zay 2.3 H* (0.7-2.0) mmol/L Calcium (8.4-10.2) mg/dL Alkaline Phosphatase (38-126) U/L Troponin I 0.058 H* (0.000-0.034) ng/mL C-Reactive Protein (<1.0) mg/dL Total Protein (6.3-8.2) g/dL Albumin (3.5-5.0) g/dL Urine Protein (Negative) Urine Glucose (UA) (Negative) Coronavirus (PCR) (Not Detectd) 01/15/22 01/15/22 01/15/22 Range/Units 05:46 05:46 06:08 WBC 2.2 L (3.8-10.6) k/uL RBC 3.16 L (4.30-5.90) m/uL Hgb 10.2 L (13.0-17.5) gm/dL Hct 31.4 L (39.0-53.0) % MCV (80.0-100.0) fL Plt Count 119 L (150-450) k/uL Lymphocytes # 0.5 L (1.0-4.8) k/uL VBG HCO3 (24-28) mmol/L Sodium 135 L (137-145) mmol/L Carbon Dioxide 21 L (22-30) mmol/L BUN 54 H (9-20) mg/dL Glucose 368 H (74-99) mg/dL POC Glucose (mg/dL) 392 H (75-99) mg/dL Plasma Lactic Acid Zay (0.7-2.0) mmol/L Calcium 7.7 L (8.4-10.2) mg/dL Alkaline Phosphatase 146 H (38-126) U/L Troponin I (0.000-0.034) ng/mL C-Reactive Protein (<1.0) mg/dL Total Protein 5.7 L (6.3-8.2) g/dL Albumin 3.0 L (3.5-5.0) g/dL Urine Protein (Negative) Urine Glucose (UA) (Negative) Coronavirus (PCR) (Not Detectd) Thrombosis Risk Factor Assmnt - Choose All That Apply Any of the Below Risk Factors Present?: No Other Risk Factors: No Other congenital or acquired thrombophilia - If yes, enter type in comment: No Thrombosis Risk Factor Assessment Level: Very Low Risk
--- NOTE | 2022-01-15 12:28 | P.CRDCN ---
History of Present Illness History of present illness: HISTORY OF PRESENTING ILLNESS This is a pleasant 86-year-old male past medical history significant for paroxysmal atrial fibrillation on Eliquis, type 2 diabetes, hypertension, dyslipidemia. We have been asked to see in consultation for abnormal troponins. Patient presents emergency department for extended care facility due to abnormal labs and hyperglycemia. Patient was recently diagnosed with covid- 19, he has been having symptoms of generalized weakness, fatigue. He denies symptoms of shortness of breath, chest pain, lightheadedness or dizziness. He denies any history of coronary disease, [place], stroke. He denies any tobacco use. Troponins were drawn in the ER which was mildly abnormal, 0.053. Patient's blood sugar on admission 599. DIAGNOSTICS EKG reveals sinus rhythm, first-degree AV block, heart rate 96, nonspecific ST ST-T wave abnormalities.. Telemetry tracings indicate sinus rhythm heart rate in 80s-90s Chest xray right lower lobe hemithorax opacity consistent with mild to moderate pleural effusion, associated with depression and right lower lobe infiltration Laboratory reviewed, WBC 2.2, hemoglobin 10.2, platelets 119, sodium 135, potassium 4.7, BUN 54, serum creatinine 0.9, magnesium 2.0 Echocardiogram revealed 50-55%, moderately increased left ventricular hypertrophy, severe aortic stenosis with a peak/mean gradient 16 mmHg/39 mmHg, mild to moderate aortic regurgitation, mild to moderate mitral regurgitation Current home cardiac medications include digoxin 125mcg daily, lisinopril 10 mg daily, pravastatin 40 mg nightly, Eliquis 2.5 mg twice a day. REVIEW OF SYSTEMS At the time of my exam: CONSTITUTIONAL: Denies fever or chills. CARDIOVASCULAR: Denies chest pain, shortness of breath, orthopnea, PND or palpitations. RESPIRATORY: Denies cough. GASTROINTESTINAL: Denies abdominal pain, diarrhea, constipation, nausea or vomiting. MUSCULOSKELETAL: Denies myalgias. NEUROLOGIC: Denies numbness, tingling, headacbe or weakness. ENDOCRINE: Denies fatigue, weight change, polydipsia or polyurina. GENITOURINARY: Denies burning, hematuria or urgency with micturation. HEMATOLOGIC: Denies history of anemia or bleeding. PHYSICAL EXAMINATION Blood pressure 132/64, heart rate 85, afebrile, saturation 90% room air CONSTITUTIONAL: No apparent distress. HEENT: Head is normocephalic. No JVD. CHEST EXAMINATION: Lungs are diminished to auscultation. No chest wall tenderness is noted on palpation or with deep breathing. HEART EXAMINATION: Regular rate and rhythm. S1, S2 heard. Systolic murmur noted ABDOMEN: Soft, nontender. Positive bowel sounds. EXTREMITIES: 2+ peripheral pulses, no lower extremity edema and no calf tenderness. NEUROLOGIC EXAMINATION: Patient is awake, alert and oriented x3. ASSESSMENT Hyperglycemia Covid-19 infection Elevated troponin, not consistent with ACS, possibly related to aortic stenosis and covid-19 infection Pancytopenia Severe aortic stenosis Mild to moderate aortic regurgitation Mild to moderate mitral regurgitation Paroxysmal atrial fibrillation on Eliquis Type 2 diabetes Hypertension Dyslipidemia. PLAN 2D echocardiogram reviewed Continue home cardiac medications Recommend close follow up as an outpatient for further management of aortic stenosis as an outpatient We will follow the patient as needed. Please reconsult if needed Nurse practitioner note has been reviewed by physician. Signing provider agrees with the documented findings, assessment, and plan of care. Past Medical History Past Medical History: Atrial Fibrillation, Diabetes Mellitus, Hyperlipidemia Additional Past Medical History / Comment(s): dysphagia, polio History of Any Multi-Drug Resistant Organisms: None Reported Past Surgical History: Orthopedic Surgery Additional Past Surgical History / Comment(s): feet and carpal tunnel Additional Past Anesthesia/Blood Transfusion Reaction / Comment(s): patient unaware Past Psychological History: No Psychological Hx Reported Smoking Status: Never smoker Past Alcohol Use History: None Reported Past Drug Use History: None Reported Medications and Allergies Home Medications Medication Instructions Recorded Confirmed Type Acetaminophen Tab [Tylenol] 650 mg PO Q4H PRN 01/14/22 01/14/22 History Apixaban [Eliquis] 2.5 mg PO BID 01/14/22 01/14/22 History Ascorbic Acid [Vitamin C] 500 mg PO DAILY 01/14/22 01/14/22 History Cholecalciferol [Vitamin D3 (25 50 mcg PO DAILY 01/14/22 01/14/22 History Mcg = 1000 Iu)] Digoxin [Lanoxin] 125 mcg PO DAILY@0600 01/14/22 01/14/22 History Ferrous Sulfate [Iron] 325 mg PO DAILY 01/14/22 01/14/22 History Glimepiride [Amaryl] 4 mg PO DAILY 01/14/22 01/14/22 History Glucerna Shake 1 can PO TID 01/14/22 01/14/22 History Insulin Lispro [humaLOG Kwikpen] See Protocol SQ ACHS 01/14/22 01/14/22 History Levothyroxine Sodium [Synthroid] 100 mcg PO DAILY@0600 01/14/22 01/14/22 History Linagliptin [Tradjenta] 5 mg PO DAILY 01/14/22 01/14/22 History Lisinopril [Prinivil] 10 mg PO DAILY 01/14/22 01/14/22 History Methyl Salicylate/Menth/Camph 1 patch TOPICAL DAILY 01/14/22 01/14/22 History [Salonpas 3.1%-6.0%-10.0% Patch] Multivitamins, Thera [Multivitamin 1 tab PO DAILY 01/14/22 01/14/22 History (formulary)] Nirmatrelvir/Ritonavir [Paxlovid 1 tab PO BID 01/14/22 01/14/22 History Co-Pack (Eua)] Pravastatin Sodium [Pravachol] 40 mg PO HS 01/14/22 01/14/22 History Propylene Glycol/Peg 400/Pf 1 drop BOTH EYES TID@0600,1400,2200 01/14/22 01/14/22 History [Systane 0.3-0.4% Eye Drop] Pseudoephedrine HCl [Sudafed] 30 mg PO TID 01/14/22 01/14/22 History Vit C/E/Zn/Coppr/Lutein/Zeaxan 1 cap PO DAILY 01/14/22 01/14/22 History [Preservision Areds 2 Softgel] Zinc 50 mg PO DAILY 01/14/22 01/14/22 History dexAMETHasone 6 mg PO DAILY 01/14/22 01/14/22 History Allergies Allergy/AdvReac Type Severity Reaction Status Date / Time No Known Allergies Allergy Verified 01/14/22 22:58 Physical Exam Vitals: Vital Signs Temp Pulse Pulse Resp BP BP Pulse Ox 01/15/22 04:00 97.7 F 85 14 132/64 98 01/15/22 02:04 87 16 122/62 99 01/15/22 00:33 90 18 124/62 100 01/14/22 23:35 97.4 F L 86 18 114/57 100 01/14/22 21:08 98 F 107 H 16 135/70 98 Intake and Output 01/14/22 01/15/22 01/15/22 22:59 06:59 14:59 Intake Total 0 Balance 0 Intake: Oral 0 Other: Voiding Method Urinal Diaper # Voids 1 Weight 64.41 kg 64.41 kg Results 01/15/22 05:46 01/15/22 05:46 Cardiac Enzymes 01/14/22 01/14/22 01/15/22 Range/Units 21:55 21:55 01:05 AST 46 (17-59) U/L Troponin I 0.057 H* 0.056 H* (0.000-0.034) ng/mL 01/15/22 01/15/22 Range/Units 05:46 05:46 AST 36 (17-59) U/L Troponin I 0.058 H* (0.000-0.034) ng/mL Coagulation 01/14/22 Range/Units 21:55 PT 9.6 (9.0-12.0) sec APTT 22.3 (22.0-30.0) sec CBC 01/14/22 01/15/22 Range/Units 21:55 05:46 WBC 2.3 L 2.2 L (3.8-10.6) k/uL RBC 3.43 L 3.16 L (4.30-5.90) m/uL Hgb 10.9 L 10.2 L (13.0-17.5) gm/dL Hct 34.7 L 31.4 L (39.0-53.0) % Plt Count 159 119 L (150-450) k/uL Comprehensive Metabolic Panel 01/14/22 01/15/22 Range/Units 21:55 05:46 Sodium 131 L 135 L (137-145) mmol/L Potassium 4.9 4.7 (3.5-5.1) mmol/L Chloride 98 105 (98-107) mmol/L Carbon Dioxide 22 21 L (22-30) mmol/L BUN 57 H 54 H (9-20) mg/dL Creatinine 1.01 0.98 (0.66-1.25) mg/dL Glucose 599 H* 368 H (74-99) mg/dL Calcium 8.1 L 7.7 L (8.4-10.2) mg/dL AST 46 36 (17-59) U/L ALT 42 35 (4-49) U/L Alkaline Phosphatase 185 H 146 H (38-126) U/L Total Protein 6.4 5.7 L (6.3-8.2) g/dL Albumin 3.5 3.0 L (3.5-5.0) g/dL Current Medications Generic Name Dose Route Start Last Admin Trade Name Freq PRN Reason Stop Dose Admin Acetaminophen 650 mg 01/15/22 05:45 Acetaminophen Tab 325 Mg Tab PO Q4H PRN Pain Apixaban 2.5 mg 01/15/22 09:00 Apixaban 2.5 Mg Tablet PO BID [facility] Protocol Artificial Tears 1 drops 01/15/22 06:00 01/15/22 06:45 Artificial Tears-Hypromellose Drops 15 Ml Btl BOTH EYES 1 drops TID@0600,1400,2200 [facility] Administration Ascorbic Acid 500 mg 01/15/22 09:00 Ascorbic Acid 500 Mg Tab PO DAILY [facility] Cholecalciferol 50 mcg 01/15/22 09:00 Cholecalciferol 25 Mcg (1000 Iu) Tablet PO DAILY [facility] Dexamethasone 6 mg 01/15/22 09:00 Dexamethasone 2 Mg Tab PO DAILY [facility] Digoxin 125 mcg 01/15/22 06:00 01/15/22 06:44 Digoxin 125 Mcg Tab PO 125 mcg DAILY@0600 [facility] Administration Ferrous Sulfate 325 mg 01/15/22 09:00 Ferrous Sulfate 325 Mg Tab PO DAILY [facility] Glimepiride 4 mg 01/15/22 09:00 Glimepiride 4 Mg Tab PO DAILY [facility] Ibuprofen 400 mg 01/14/22 23:12 Ibuprofen 400 Mg Tab PO Q6HR PRN Mild Pain or Fever > 100.5 Insulin Aspart 0 unit 01/15/22 07:30 01/15/22 06:41 Insulin Aspart (Novolog) 100 Unit/Ml Vial SQ Not Given AC-TID [facility] Protocol Insulin Aspart 10 unit 01/15/22 07:30 01/15/22 06:44 Insulin Aspart (Novolog) 100 Unit/Ml Vial SQ 10 unit ACHS [facility] Administration Levothyroxine Sodium 100 mcg 01/15/22 06:00 01/15/22 06:44 Levothyroxine 100 Mcg Tab PO 100 mcg DAILY@0600 [facility] Administration Linagliptin 5 mg 01/15/22 09:00 Linagliptin 5 Mg Tablet PO DAILY [facility] Lisinopril 10 mg 01/15/22 09:00 Lisinopril 10 Mg Tab PO DAILY [facility] Lorazepam 0.5 mg 01/14/22 23:12 Lorazepam 2 Mg/Ml Inj IV Q6HR PRN Anxiety Multivitamins 1 each 01/15/22 09:00 Multivitamins, Thera 1 Each Tab PO DAILY [facility] Multivitamins/Minerals 1 each 01/15/22 09:00 Vit A,C & [id number] 1 Each Tab PO DAILY [facility] Naloxone HCl 0.2 mg 01/14/22 23:12 Naloxone 0.4 Mg/Ml 1 Ml Vial IV Q2M PRN Opioid Reversal Patient's Own ( 1 tab 01/15/22 09:00 Nirmatrelvir/ PO Ritonavir [Paxlovid BID [facility] Co-Pack (Eua)] 1 Each Tablet) Pantoprazole Sodium 40 mg 01/15/22 07:30 01/15/22 06:46 Pantoprazole 40 Mg Tablet PO 40 mg [id number] [facility] Administration Pravastatin Sodium 40 mg 01/15/22 21:00 Pravastatin Sodium 40 Mg Tab PO HS [facility] Zinc Sulfate 220 mg 01/15/22 09:00 Zinc Sulfate 220 Mg Cap PO DAILY [facility] Intake and Output 01/14/22 01/15/22 01/15/22 22:59 06:59 14:59 Intake Total 0 Balance 0 Intake: Oral 0 Other: Voiding Method Urinal Diaper # Voids 1 Weight 64.41 kg 64.41 kg 01/15/22 05:46 01/15/22 05:46
--- NOTE | 2022-01-15 12:36 | P.CNPUL ---
History of Present Illness Consult date: 01/15/22 Chief complaint: COVID 19 History of present illness: 86-year-old male patient came into the emergency department because of hyperglycemia and the patient was apparently positive for COVID 19. Per EMS, the patient had significant controlled blood sugar and the extended care facility where he resides. The patient denied having any worsening shortness of breath. Denies having any cough or sputum production. No nausea vomiting or abdominal pain. The patient is known to have diabetes, hypothyroidism and hypertension. He was apparently receiving Paxlovid on outpatient basis along with Decadron 6 mg by mouth daily. Recurrent pulse ox on room air is 98% and the patient is not showing any signs of respiratory distress. The chest x-ray is showing no acute abnormalities. No airspace disease or infiltrates have been noted on chest x-ray. The blood work showed a white cell count of 2.2 with a hemoglobin of 10.2 and a platelet count of 119. The coagulation profile was normal. The blood work showed a BUN of 54 with a creatinine of 0.9. Sodium is 135 with a potassium level of 4.7. Lactic acid level was 3.0 time of admission and it dropped down to 1.3. Electrolytes were normal. Troponin was 0.05 respectively 2. Blood sugar was as high as 599 and currently is down to 368. COVID 19 by PCR was again positive. Acetone was negative. Liver function tests were essentially within normal limits. The patient was offered Levemir insulin for blood sugar control 15 units daily along with 10 units of NovoLog with meals and is sinus care coverage. Is currently on Decadron 4 mg by mouth daily. The inflammatory markers have not been checked at this point in time. D-dimer has not been checked. Review of Systems At the time of my exam: CONSTITUTIONAL: Denies fever or chills. CARDIOVASCULAR: Denies chest pain, shortness of breath, orthopnea, PND or palpitations. RESPIRATORY: Denies cough. GASTROINTESTINAL: Denies abdominal pain, diarrhea, constipation, nausea or vomiting. MUSCULOSKELETAL: Denies myalgias. NEUROLOGIC: Denies numbness, tingling, headacbe or weakness. ENDOCRINE: Denies fatigue, weight change, polydipsia or polyurina. GENITOURINARY: Denies burning, hematuria or urgency with micturation. HEMATOLOGIC: Denies history of anemia or bleeding. Past Medical History Past Medical History: Atrial Fibrillation, Diabetes Mellitus, Hyperlipidemia Additional Past Medical History / Comment(s): dysphagia, polio History of Any Multi-Drug Resistant Organisms: None Reported Past Surgical History: Orthopedic Surgery Additional Past Surgical History / Comment(s): feet and carpal tunnel Additional Past Anesthesia/Blood Transfusion Reaction / Comment(s): patient unaware Past Psychological History: No Psychological Hx Reported Smoking Status: Never smoker Past Alcohol Use History: None Reported Past Drug Use History: None Reported Medications and Allergies Home Medications Medication Instructions Recorded Confirmed Type Acetaminophen Tab [Tylenol] 650 mg PO Q4H PRN 01/14/22 01/14/22 History Apixaban [Eliquis] 2.5 mg PO BID 01/14/22 01/14/22 History Ascorbic Acid [Vitamin C] 500 mg PO DAILY 01/14/22 01/14/22 History Cholecalciferol [Vitamin D3 (25 50 mcg PO DAILY 01/14/22 01/14/22 History Mcg = 1000 Iu)] Digoxin [Lanoxin] 125 mcg PO DAILY@0600 01/14/22 01/14/22 History Ferrous Sulfate [Iron] 325 mg PO DAILY 01/14/22 01/14/22 History Glimepiride [Amaryl] 4 mg PO DAILY 01/14/22 01/14/22 History Glucerna Shake 1 can PO TID 01/14/22 01/14/22 History Insulin Lispro [humaLOG Kwikpen] See Protocol SQ ACHS 01/14/22 01/14/22 History Levothyroxine Sodium [Synthroid] 100 mcg PO DAILY@0600 01/14/22 01/14/22 History Linagliptin [Tradjenta] 5 mg PO DAILY 01/14/22 01/14/22 History Lisinopril [Prinivil] 10 mg PO DAILY 01/14/22 01/14/22 History Methyl Salicylate/Menth/Camph 1 patch TOPICAL DAILY 01/14/22 01/14/22 History [Salonpas 3.1%-6.0%-10.0% Patch] Multivitamins, Thera [Multivitamin 1 tab PO DAILY 01/14/22 01/14/22 History (formulary)] Nirmatrelvir/Ritonavir [Paxlovid 1 tab PO BID 01/14/22 01/14/22 History Co-Pack (Eua)] Pravastatin Sodium [Pravachol] 40 mg PO HS 01/14/22 01/14/22 History Propylene Glycol/Peg 400/Pf 1 drop BOTH EYES TID@0600,1400,2200 01/14/22 01/14/22 History [Systane 0.3-0.4% Eye Drop] Pseudoephedrine HCl [Sudafed] 30 mg PO TID 01/14/22 01/14/22 History Vit C/E/Zn/Coppr/Lutein/Zeaxan 1 cap PO DAILY 01/14/22 01/14/22 History [Preservision Areds 2 Softgel] Zinc 50 mg PO DAILY 01/14/22 01/14/22 History dexAMETHasone 6 mg PO DAILY 01/14/22 01/14/22 History Allergies Allergy/AdvReac Type Severity Reaction Status Date / Time No Known Allergies Allergy Verified 01/14/22 22:58 Physical Exam Vitals: Vital Signs Temp Pulse Pulse Resp BP BP Pulse Ox 01/15/22 04:00 97.7 F 85 14 132/64 98 01/15/22 02:04 87 16 122/62 99 01/15/22 00:33 90 18 124/62 100 01/14/22 23:35 97.4 F L 86 18 114/57 100 01/14/22 21:08 98 F 107 H 16 135/70 98 Intake and Output 01/14/22 01/15/22 01/15/22 22:59 06:59 14:59 Intake Total 0 Balance 0 Intake: Oral 0 Other: Voiding Method Urinal Diaper # Voids 1 1 Weight 64.41 kg 64.41 kg Gen: This is an 86-year-old male. He is resting but appears to be comfortable and in no acute distress. HEENT: Head is atraumatic, normocephalic. Pupils equal, round. Sclerae is anicteric. NECK: Supple. No JVD. No lymphadenopathy. No thyromegaly. LUNGS: Clear to auscultation. No wheezes or rhonchi. No intercostal retractions. HEART: Regular rate and rhythm. No murmur. ABDOMEN: Soft. Bowel sounds are present. No masses. No tenderness. EXTREMITIES: wounds to the bilateral lower extremities, chronic stasis dermatitis, wound to the right shoulder. Please see nursing documentation for details. No pedal edema. NEUROLOGICAL: Patient is awake, alert and oriented x3. Cranial nerves 2 through 12 are grossly intact. 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 Results - Laboratory Findings CBC and BMP: 01/15/22 05:46 01/15/22 05:46 PT/INR, D-dimer PT 9.6 sec (9.0-12.0) 01/14/22 21:55 INR 0.9 (<1.2) 01/14/22 21:55 Abnormal lab findings: Abnormal Labs 01/14/22 01/14/22 01/14/22 21:55 21:55 21:55 WBC 2.3 L RBC 3.43 L Hgb 10.9 L Hct 34.7 L MCV 101.0 H Plt Count Lymphocytes # 0.3 L VBG HCO3 Sodium 131 L Carbon Dioxide BUN 57 H Glucose 599 H* POC Glucose (mg/dL) Plasma Lactic Acid Zay 3.0 H* Calcium 8.1 L Alkaline Phosphatase 185 H Troponin I C-Reactive Protein 2.0 H Total Protein Albumin Urine Protein Urine Glucose (UA) Coronavirus (PCR) 01/14/22 01/14/22 01/15/22 21:55 21:55 00:26 WBC RBC Hgb Hct MCV Plt Count Lymphocytes # VBG HCO3 22 L Sodium Carbon Dioxide BUN Glucose POC Glucose (mg/dL) 547 H Plasma Lactic Acid Zay Calcium Alkaline Phosphatase Troponin I 0.057 H* C-Reactive Protein Total Protein Albumin Urine Protein Urine Glucose (UA) Coronavirus (PCR) 01/15/22 01/15/22 01/15/22 00:38 01:03 01:05 WBC RBC Hgb Hct MCV Plt Count Lymphocytes # VBG HCO3 Sodium Carbon Dioxide BUN Glucose POC Glucose (mg/dL) Plasma Lactic Acid Zay Calcium Alkaline Phosphatase Troponin I 0.056 H* C-Reactive Protein Total Protein Albumin Urine Protein Trace H Urine Glucose (UA) 4+ H Coronavirus (PCR) Detected A 01/15/22 01/15/22 01/15/22 01:37 01:45 05:46 WBC RBC Hgb Hct MCV Plt Count Lymphocytes # VBG HCO3 Sodium Carbon Dioxide BUN Glucose POC Glucose (mg/dL) 401 H Plasma Lactic Acid Zay 2.3 H* Calcium Alkaline Phosphatase Troponin I 0.058 H* C-Reactive Protein Total Protein Albumin Urine Protein Urine Glucose (UA) Coronavirus (PCR) 01/15/22 01/15/22 01/15/22 05:46 05:46 06:08 WBC 2.2 L RBC 3.16 L Hgb 10.2 L Hct 31.4 L MCV Plt Count 119 L Lymphocytes # 0.5 L VBG HCO3 Sodium 135 L Carbon Dioxide 21 L BUN 54 H Glucose 368 H POC Glucose (mg/dL) 392 H Plasma Lactic Acid Zay Calcium 7.7 L Alkaline Phosphatase 146 H Troponin I C-Reactive Protein Total Protein 5.7 L Albumin 3.0 L Urine Protein Urine Glucose (UA) Coronavirus (PCR) 01/15/22 01/15/22 10:25 11:41 WBC RBC Hgb Hct MCV Plt Count Lymphocytes # VBG HCO3 Sodium Carbon Dioxide BUN Glucose POC Glucose (mg/dL) 323 H 301 H Plasma Lactic Acid Zay Calcium Alkaline Phosphatase Troponin I C-Reactive Protein Total Protein Albumin Urine Protein Urine Glucose (UA) Coronavirus (PCR) Assessment and Plan Plan: COVID 19 infection, was being treated with Paxlovid and Decadron on an outpatient basis, no indication for pneumonia with hypoxemia this point in time and the patient presented to the hospital because of hyperglycemia, which could be potentially steroid-induced. Diabetes mellitus with a component of steroid-induced hyperglycemia Dehydration, could be related to hyperglycemia History of atrial fibrillation rate is controlled and the patient is on long- term medical condition with Eliquis, current rhythm is sinus Hyperlipidemia Hypertension History of polio Severe aortic stenosis with a preserved LV function. The patient has a mean gradient of 39 and a peak gradient of 68 across the aortic valve. Pancytopenia, rule out underlying bone marrow suppression/mild dysplasia/myelofibrosis Patient resides in an extended care facility Plan Stop the Decadron. I personally do not see any indication for Decadron. The patient has been fully vaccinated and the patient does not have any hypoxemia for now. I reviewed the chest x-ray and there is no clear indication for pneumonia and the patient's sister says is stable for now. Decadron has induced some hyperglycemia on this patient which ended up resulting into this current hospitalization. However, the patient may complete the course of Paxlovid Continue blood sugar management per medicine. IV fluids and the patient received 1.5 L bolus and currently the patient is on a maintenance of 100s an hour Check inflammatory markers including LDH, CRP and d-dimer is Repeat chest x-ray in the morning Dropped IV fluids to 50 mL an hour of normal saline May go back to ECF in a.m. if no changes.
[2022-01-15] MEDS: SODIUM CHLORIDE 0.9% 1,000 ML IV SCH (12:40)
[2022-01-15 15:49] LABS: C Reactive Protein 1.2 mg/dL (<1.0)
[2022-01-15 16:44] LABS: Glucose,Whole Blood 220 mg/dL (75-99)
[2022-01-15 20:25] LABS: Glucose,Whole Blood 368 mg/dL (75-99)
[2022-01-15] MEDS: PRAVASTATIN SODIUM 40 MG TAB PO SCH (21:27)
[2022-01-16] MEDS: SODIUM CHLORIDE 0.9% 1,000 ML IV SCH (04:19)
[2022-01-16 06:26] LABS: Glucose,Whole Blood 105 mg/dL (75-99)
[2022-01-16] MEDS: PANTOPRAZOLE 40 MG TABLET PO SCH (06:55)
[2022-01-16] MEDS: DIGOXIN 125 MCG TAB PO SCH (06:55)
[2022-01-16] MEDS: LEVOTHYROXINE 100 MCG TAB PO SCH (06:55)
[2022-01-16] MEDS: ARTIFICIAL TEARS-HYPROMELLOSE DROPS 15 ML BTL BOTH EYES SCH ×3 (06:56→21:01)
[2022-01-16] MEDS ORDERED: INSULIN DETEMIR (LEVEMIR) 100 UNIT/ML SYR SQ SCH (07:00)
[2022-01-16] MEDS: INSULIN ASPART (NovoLOG) 100 UNIT/ML VIAL SQ SCH ×7 (08:37→21:00)
[2022-01-16] MEDS: RITONAVIR PO SCH ×2 (08:38→21:01)
[2022-01-16] MEDS: NIRMATRELVIR PO SCH ×2 (08:38→21:01)
[2022-01-16] MEDS: INSULIN DETEMIR (LEVEMIR) 100 UNIT/ML SYR SQ SCH (08:41)
[2022-01-16] MEDS: ZINC SULFATE 220 MG CAP PO SCH (08:41)
[2022-01-16] MEDS: CHOLECALCIFEROL 25 MCG (1000 IU) TABLET PO SCH (08:41)
[2022-01-16] MEDS: lisinopriL 10 MG TAB PO SCH (08:41)
[2022-01-16] MEDS: MULTIVITAMINS, THERA 1 EACH TAB PO SCH (08:41)
[2022-01-16] MEDS: APIXABAN 2.5 MG TABLET PO SCH ×2 (08:41→21:01)
[2022-01-16] MEDS: ASCORBIC ACID 500 MG TAB PO SCH (08:41)
[2022-01-16] MEDS: FERROUS SULFATE 325 MG TAB PO SCH (08:41)
[2022-01-16] MEDS: GLIMEPIRIDE 4 MG TAB PO SCH (08:42)
[2022-01-16] MEDS: VIT A,C & E-LUTEIN-MINERALS 1 EACH TAB PO SCH (08:42)
[2022-01-16] MEDS: LINAGLIPTIN 5 MG TABLET PO SCH (08:42)
[2022-01-16] MEDS ORDERED: dexAMETHasone 2 MG TAB PO SCH (09:00)
--- NOTE | 2022-01-16 12:06 | P.PN ---
Subjective Progress Note Date: 01/16/22 86-year-old male patient came into the emergency department because of hyperglycemia and the patient was apparently positive for COVID 19. Per EMS, the patient had significant controlled blood sugar and the extended care facility where he resides. The patient denied having any worsening shortness of breath. Denies having any cough or sputum production. No nausea vomiting or abdominal pain. The patient is known to have diabetes, hypothyroidism and hypertension. He was apparently receiving Paxlovid on outpatient basis along with Decadron 6 mg by mouth daily. Recurrent pulse ox on room air is 98% and the patient is not showing any signs of respiratory distress. The chest x-ray is showing no acute abnormalities. No airspace disease or infiltrates have been noted on chest x-ray. The blood work showed a white cell count of 2.2 with a hemoglobin of 10.2 and a platelet count of 119. The coagulation profile was normal. The blood work showed a BUN of 54 with a creatinine of 0.9. Sodium is 135 with a potassium level of 4.7. Lactic acid level was 3.0 time of admission and it dropped down to 1.3. Electrolytes were normal. Troponin was 0.05 respectively 2. Blood sugar was as high as 599 and currently is down to 368. COVID 19 by PCR was again positive. Acetone was negative. Liver function tests were essentially within normal limits. The patient was offered Levemir insulin for blood sugar control 15 units daily along with 10 units of NovoLog with meals and is sinus care coverage. Is currently on Decadron 4 mg by mouth daily. The inflammatory markers have not been checked at this point in time. D-dimer has not been checked. On today's evaluation of 01/16/2022, the patient is clinically stable. No complaints. Remains on room air oxygen. Blood sugars are under better control. No other active issues for now. No nausea. No vomiting. No emesis. I have requested to restart Paxlovid Objective - Vital Signs Vital signs: Vital Signs Temp 97.7 F 01/16/22 08:00 Pulse 87 01/16/22 08:00 Resp 16 01/16/22 08:00 BP 130/63 01/16/22 08:00 Pulse Ox 100 01/16/22 08:00 FiO2 Intake & Output 06/10/22 06/11/22 06/11/22 18:59 06:59 18:59 Intake Total 260 10 240 Output Total 350 1175 Balance -90 -1165 240 Weight 64.41 kg Intake: IV 10 Invasive Line 1 10 Oral 260 240 Output: Urine 350 1175 Other: Voiding Method Urinal Diaper # Voids 1 4 # Bowel Movements 0 - Exam Gen: This is an 86-year-old male. He is resting but appears to be comfortable and in no acute distress. HEENT: Head is atraumatic, normocephalic. Pupils equal, round. Sclerae is anicteric. NECK: Supple. No JVD. No lymphadenopathy. No thyromegaly. LUNGS: Clear to auscultation. No wheezes or rhonchi. No intercostal retractions. HEART: Regular rate and rhythm. No murmur. ABDOMEN: Soft. Bowel sounds are present. No masses. No tenderness. EXTREMITIES: wounds to the bilateral lower extremities, chronic stasis dermatitis, wound to the right shoulder. Please see nursing documentation for details. No pedal edema. NEUROLOGICAL: Patient is awake, alert and oriented x3. Cranial nerves 2 through 12 are grossly intact. 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 - Labs CBC & Chem 7: 01/15/22 05:46 01/15/22 05:46 Labs: Abnormal Lab Results - Last 24 Hours (Table) 01/15/22 01/15/22 01/15/22 Range/Units 10:25 11:41 14:18 D-Dimer 1.97 H (<0.60) mg/L FEU POC Glucose (mg/dL) 323 H 301 H (75-99) mg/dL C-Reactive Protein (<1.0) mg/dL 01/15/22 01/15/22 01/15/22 Range/Units 14:18 16:39 20:13 D-Dimer (<0.60) mg/L FEU POC Glucose (mg/dL) 220 H 368 H (75-99) mg/dL C-Reactive Protein 1.2 H (<1.0) mg/dL 01/16/22 Range/Units 06:24 D-Dimer (<0.60) mg/L FEU POC Glucose (mg/dL) 105 H (75-99) mg/dL C-Reactive Protein (<1.0) mg/dL Assessment and Plan Plan: COVID 19 infection, was being treated with Paxlovid and Decadron on an outpatient basis, no indication for pneumonia with hypoxemia this point in time and the patient presented to the hospital because of hyperglycemia, which could be potentially steroid-induced. Diabetes mellitus with a component of steroid-induced hyperglycemia Dehydration, could be related to hyperglycemia History of atrial fibrillation rate is controlled and the patient is on long- term medical condition with Eliquis, current rhythm is sinus Hyperlipidemia Hypertension History of polio Severe aortic stenosis with a preserved LV function. The patient has a mean gradient of 39 and a peak gradient of 68 across the aortic valve. Pancytopenia, rule out underlying bone marrow suppression/mild dysplasia/myelofibrosis Patient resides in an extended care facility Plan Clinically stable blood sugars under better control No issues with breathing or oxygenation Inflammatory markers are low with an LDL level of 595 and a CRP of 1.2 and a d- dimer of 1.97 Patient is on anticoagulants Dropped IV fluids to 50 mL an hour of normal saline May go back to ECF in a.m. if no changes.
[2022-01-16 12:09] LABS: Glucose,Whole Blood 179 mg/dL (75-99)
[2022-01-16 16:44] LABS: Glucose,Whole Blood 69 mg/dL (75-99)
[2022-01-16 17:04] LABS: Glucose,Whole Blood 83 mg/dL (75-99)
--- NOTE | 2022-01-16 18:05 | P.PN ---
Subjective Progress Note Date: 01/16/22 Principal diagnosis: COVID 19 infection Diabetes mellitus with marked hyperglycemia related to steroid use Dehydration likely related to hyperglycemia 86-year-old male patient of Dr. Hughes with past medical history of Diabetes mellitus type 2, hypertension, hyperlipidemia, paroxysmal atrial fibrillation, dysphagia, polio affecting the right side. Patient was treated at [facility] after a fall where he laid on the ground for 3 days. Police had to break into his home to get him out. There was loss of consciousness and he had hit his head. Patient was treated at [facility] and then transferred to [facility] for subacute rehab. Patient was subsequently found to be positive test for Covid 19 and was started on Paxlovid, dexamethasone, vitamin C and zinc. Patient subsequently developed a high blood sugar which registered as "HI" on 2 draws, patient received additional 12 units of Humulin insulin at suppertime but again when rechecked CBG was high and patient was transferred into the hospital for further evaluation. Patient denies any symptoms of Covid. 01/16/2022 --the patient is clinically stable. No complaints. Remains on room air oxygen. Blood sugars are under better control. No other active issues for now. No nausea. No vomiting. No emesis. -- Patient has been started on Paxlovid pulmonary recommendations and Decadron is discontinued; blood sugars markedly improved since Decadron is discontinued - Inflammatory markers are monitor and reveal LDH of 595, CRP of 1.2 and d-dimer of 1.97 - Patient remains on anticoagulants Can be transferred back to [facility] in next 24 hours if hyperglycemia has resolved Objective - Vital Signs Vital signs: Vital Signs Temp 97.7 F 01/16/22 08:00 Pulse 87 01/16/22 08:00 Resp 16 01/16/22 08:00 BP 130/63 01/16/22 08:00 Pulse Ox 100 01/16/22 08:00 FiO2 Intake & Output 01/15/22 01/16/22 01/16/22 18:59 06:59 18:59 Intake Total 260 10 240 Output Total 350 1175 250 Balance -90 -1165 -10 Weight 64.41 kg Intake: IV 10 Invasive Line 1 10 Oral 260 240 Output: Urine 350 1175 250 Other: Voiding Method Urinal Diaper # Voids 1 4 # Bowel Movements 0 1 - Exam PHYSICAL EXAMINATION: GENERAL: The patient is alert and oriented x3, not in any acute distress. Well developed, well nourished. HEENT: Pupils are round and equally reacting to light. EOMI. No scleral icterus. No conjunctival pallor. Normocephalic, atraumatic. No pharyngeal erythema. No thyromegaly. CARDIOVASCULAR: S1 and S2 present. No murmurs, rubs, or gallops. PULMONARY: Chest is clear to auscultation, no wheezing or crackles. ABDOMEN: Soft, nontender, nondistended, normoactive bowel sounds. No palpable organomegaly. MUSCULOSKELETAL: No joint swelling or deformity. EXTREMITIES: No cyanosis, clubbing, or pedal edema. NEUROLOGICAL: Gross neurological examination did not reveal any focal deficits. SKIN: No rashes. - Labs CBC & Chem 7: 01/15/22 05:46 01/15/22 05:46 Labs: Abnormal Lab Results - Last 24 Hours (Table) 01/15/22 01/15/22 01/15/22 Range/Units 11:41 14:18 14:18 D-Dimer 1.97 H (<0.60) mg/L FEU POC Glucose (mg/dL) 301 H (75-99) mg/dL C-Reactive Protein 1.2 H (<1.0) mg/dL 01/15/22 01/15/22 01/16/22 Range/Units 16:39 20:13 06:24 D-Dimer (<0.60) mg/L FEU POC Glucose (mg/dL) 220 H 368 H 105 H (75-99) mg/dL C-Reactive Protein (<1.0) mg/dL Assessment and Plan Assessment: 1. COVID 19 infection, was being treated with Paxlovid and Decadron on an outpatient basis, no indication for pneumonia with hypoxemia this point in time and the patient presented to the hospital because of hyperglycemia, which could be potentially steroid-induced. 2. Diabetes mellitus with a component of steroid-induced hyperglycemia 3. Dehydration, could be related to hyperglycemia 4 History of atrial fibrillation rate is controlled and the patient is on long- term medical condition with Eliquis, current rhythm is sinus 5. Hyperlipidemia 6. Hypertension 7. Severe aortic stenosis with a preserved LV function. The patient has a mean gradient of 39 and a peak gradient of 68 across the aortic valve. 8. Pancytopenia, rule out underlying bone marrow suppression/mild dysplasia/myelofibrosis Clinically stable blood sugars under better control No issues with breathing or oxygenation Inflammatory markers are low with an LDL level of 595 and a CRP of 1.2 and a d-dimer of 1.97 Patient is on anticoagulants Dropped IV fluids to 50 mL an hour of normal saline May go back to ECF in a.m. if no changes.
[2022-01-16 20:54] LABS: Glucose,Whole Blood 165 mg/dL (75-99)
[2022-01-16] MEDS: PRAVASTATIN SODIUM 40 MG TAB PO SCH (21:01)
[2022-01-17] MEDS: INSULIN ASPART (NovoLOG) 100 UNIT/ML VIAL SQ SCH ×4 (06:19→21:57)
[2022-01-17] MEDS: INSULIN DETEMIR (LEVEMIR) 100 UNIT/ML SYR SQ SCH (06:20)
[2022-01-17 06:24] LABS: Glucose,Whole Blood 65 mg/dL (75-99)
[2022-01-17] MEDS: ARTIFICIAL TEARS-HYPROMELLOSE DROPS 15 ML BTL BOTH EYES SCH ×3 (06:25→22:05)
[2022-01-17] MEDS: DIGOXIN 125 MCG TAB PO SCH (06:26)
[2022-01-17] MEDS: LEVOTHYROXINE 100 MCG TAB PO SCH (06:26)
[2022-01-17] MEDS: PANTOPRAZOLE 40 MG TABLET PO SCH (06:26)
[2022-01-17 06:35] LABS: Glucose,Whole Blood 79 mg/dL (75-99)
[2022-01-17] MEDS: RITONAVIR PO SCH ×2 (08:42→21:56)
[2022-01-17] MEDS: NIRMATRELVIR PO SCH ×2 (08:42→21:56)
[2022-01-17] MEDS: lisinopriL 10 MG TAB PO SCH (09:29)
[2022-01-17] MEDS: VIT A,C & E-LUTEIN-MINERALS 1 EACH TAB PO SCH (09:29)
[2022-01-17] MEDS: MULTIVITAMINS, THERA 1 EACH TAB PO SCH (09:29)
[2022-01-17] MEDS: ZINC SULFATE 220 MG CAP PO SCH (09:29)
[2022-01-17] MEDS: APIXABAN 2.5 MG TABLET PO SCH ×2 (09:29→21:56)
[2022-01-17] MEDS: FERROUS SULFATE 325 MG TAB PO SCH (09:29)
[2022-01-17] MEDS: LINAGLIPTIN 5 MG TABLET PO SCH (09:29)
[2022-01-17] MEDS: CHOLECALCIFEROL 25 MCG (1000 IU) TABLET PO SCH (09:29)
[2022-01-17] MEDS: ASCORBIC ACID 500 MG TAB PO SCH (09:29)
[2022-01-17] MEDS: GLIMEPIRIDE 4 MG TAB PO SCH (09:29)
[2022-01-17 11:54] LABS: Glucose,Whole Blood 176 mg/dL (75-99)
[2022-01-17 16:47] LABS: Glucose,Whole Blood 105 mg/dL (75-99)
[2022-01-17 20:38] LABS: Glucose,Whole Blood 185 mg/dL (75-99)
[2022-01-17] MEDS: PRAVASTATIN SODIUM 40 MG TAB PO SCH (21:56)
[2022-01-18 05:59] LABS: Glucose,Whole Blood 87 mg/dL (75-99)
[2022-01-18] MEDS: INSULIN ASPART (NovoLOG) 100 UNIT/ML VIAL SQ SCH ×4 (06:09→21:27)
[2022-01-18] MEDS: ARTIFICIAL TEARS-HYPROMELLOSE DROPS 15 ML BTL BOTH EYES SCH ×3 (06:42→21:31)
[2022-01-18] MEDS: DIGOXIN 125 MCG TAB PO SCH (06:42)
[2022-01-18] MEDS: INSULIN DETEMIR (LEVEMIR) 100 UNIT/ML SYR SQ SCH (06:42)
[2022-01-18] MEDS: LEVOTHYROXINE 100 MCG TAB PO SCH (06:42)
[2022-01-18] MEDS: PANTOPRAZOLE 40 MG TABLET PO SCH (06:42)
--- NOTE | 2022-01-18 08:24 | P.CONS ---
History of Present Illness - Reason for Consult Consult date: 01/18/22 wound care - History of Present Illness This is an 86-year-old patient being seen on [facility] for nonhealing ulcerations to bilateral lower extremities and coccyx. Patient has multiple open ulcerations to bilateral lower extremities Limited to skin breakdown that are nonpressure in nature. Granulation noted throughout the wound bed with Slough and nonviable tissue. The wound edges are attached to the wound base no tunn eling or undermining noted. Patient also has a stage II pressure ulcer to the coccyx. With fat layer exposure. Wound edges are attached to the wound base no tunneling or undermining noted. Granulation seen in the wound bed with significant amounts of Slough and nonviable tissue. Patient's past medical history significant for atrial fibrillation, diabetes mellitus, hyperlipidemia. Patient is a lifelong nonsmoker. Review Of Systems: Constitutional: No fever, no chills, no night sweats. No weight change. No weakness, fatigue or lethargy. No daytime sleepiness. Integumentary:reports wounds, no lesions. No rash or pruritus. No unusual bruising. No change in hair or nails. Physical exam: General Appearance: Alert, cooperative, no distress, appears stated age. Skin: See HPI all other Skin color, texture, tugor normal, no rashes or lesions. Neurologic: Alert oriented x3 Assessment: 1. Stage II pressure ulcer coccyx 2. Nonhealing nonpressure ulceration right lower extremity multiple sites Limited to skin breakdown 3. Nonhealing nonpressure ulceration left lower extremity multiple sites Limited to skin breakdown 4. Diabetes a skin ulcer Plan: 1.Coccyx: Apply triad, and sacral foam dressing. janae. lower extremities: Apply triad, rolled gauze and marc wrap daily. 2. Patient would benefit from outpatient wound care upon discharge. We be happy to see him in the wound care center. Thank you for the consultation any questions to contact the wound care center DNP note has been reviewed and discussed with Dr. Suárez and the impression and plan of care has been directed as dictated. Past Medical History Past Medical History: Atrial Fibrillation, Diabetes Mellitus, Hyperlipidemia Additional Past Medical History / Comment(s): dysphagia, polio History of Any Multi-Drug Resistant Organisms: None Reported Past Surgical History: Orthopedic Surgery Additional Past Surgical History / Comment(s): feet and carpal tunnel Additional Past Anesthesia/Blood Transfusion Reaction / Comm: patient unaware Past Psychological History: No Psychological Hx Reported Smoking Status: Never smoker Past Alcohol Use History: None Reported Past Drug Use History: None Reported Medications and Allergies Home Medications Medication Instructions Recorded Confirmed Type Acetaminophen Tab [Tylenol] 650 mg PO Q4H PRN 01/14/22 01/14/22 History Apixaban [Eliquis] 2.5 mg PO BID 01/14/22 01/14/22 History Ascorbic Acid [Vitamin C] 500 mg PO DAILY 01/14/22 01/14/22 History Cholecalciferol [Vitamin D3 (25 50 mcg PO DAILY 01/14/22 01/14/22 History Mcg = 1000 Iu)] Digoxin [Lanoxin] 125 mcg PO DAILY@0600 01/14/22 01/14/22 History Ferrous Sulfate [Iron] 325 mg PO DAILY 01/14/22 01/14/22 History Glimepiride [Amaryl] 4 mg PO DAILY 01/14/22 01/14/22 History Glucerna Shake 1 can PO TID 01/14/22 01/14/22 History Insulin Lispro [humaLOG Kwikpen] See Protocol SQ ACHS 01/14/22 01/14/22 History Levothyroxine Sodium [Synthroid] 100 mcg PO DAILY@0600 01/14/22 01/14/22 History Linagliptin [Tradjenta] 5 mg PO DAILY 01/14/22 01/14/22 History Lisinopril [Prinivil] 10 mg PO DAILY 01/14/22 01/14/22 History Methyl Salicylate/Menth/Camph 1 patch TOPICAL DAILY 01/14/22 01/14/22 History [Salonpas 3.1%-6.0%-10.0% Patch] Multivitamins, Thera [Multivitamin 1 tab PO DAILY 01/14/22 01/14/22 History (formulary)] Nirmatrelvir/Ritonavir [Paxlovid 1 tab PO BID 01/14/22 01/14/22 History Co-Pack (Eua)] Pravastatin Sodium [Pravachol] 40 mg PO HS 01/14/22 01/14/22 History Propylene Glycol/Peg 400/Pf 1 drop BOTH EYES TID@0600,1400,2200 01/14/22 01/14/22 History [Systane 0.3-0.4% Eye Drop] Pseudoephedrine HCl [Sudafed] 30 mg PO TID 01/14/22 01/14/22 History Vit C/E/Zn/Coppr/Lutein/Zeaxan 1 cap PO DAILY 01/14/22 01/14/22 History [Preservision Areds 2 Softgel] Zinc 50 mg PO DAILY 01/14/22 01/14/22 History dexAMETHasone 6 mg PO DAILY 01/14/22 01/14/22 History Allergies Allergy/AdvReac Type Severity Reaction Status Date / Time No Known Allergies Allergy Verified 01/14/22 22:58 Physical Exam Vitals: Vital Signs Temp Pulse Resp BP Pulse Ox 01/18/22 04:00 98.0 F 90 18 142/70 96 01/18/22 02:00 89 17 01/18/22 00:00 97.9 F 89 17 139/71 97 01/17/22 20:00 97.9 F 91 18 140/70 97 01/17/22 16:00 98.0 F 82 14 132/66 97 01/17/22 14:00 80 14 01/17/22 12:00 98.2 F 80 14 123/62 99 Intake and Output 01/17/22 01/18/22 01/18/22 22:59 06:59 14:59 Intake Total 360 100 Output Total 1500 1250 Balance -1140 -1150 Intake: Oral 360 100 Output: Urine 1500 1250 Other: Voiding Method Diaper Diaper Results CBC & Chem 7: 01/15/22 05:46 01/15/22 05:46 Labs: Abnormal Lab Results - Last 24 Hours (Table) 01/17/22 01/17/22 01/17/22 Range/Units 11:51 16:38 20:34 POC Glucose (mg/dL) 176 H 105 H 185 H (75-99) mg/dL Assessment and Plan (1) Stage II pressure ulcer of sacral region Current Visit: Yes Status: Acute Code(s): L89.152 - PRESSURE ULCER OF SACRAL REGION, STAGE 2 SNOMED Code(s): 61652444347881806 (2) Nonhealing ulcer of multiple sites of left lower extremity limited to oly akdown of skin Current Visit: Yes Status: Acute Code(s): L97.921 - NON-PRS [facility] ULC UNSP PRT OF L LOW LEG LIMITED TO BRKDWN SKIN SNOMED Code(s): 76622769 (3) Nonhealing ulcer of multiple sites of right lower extremity limited to breakdown of skin Current Visit: Yes Status: Acute Code(s): L97.911 - NON-PRS [facility] UNSP PRT OF R LOW LEG LIMITED TO BRKDWN SKIN SNOMED Code(s): 38170754 (4) Diabetes with skin ulcer Current Visit: Yes Status: Acute Code(s): E11.622 - TYPE 2 DIABETES MELLITUS WITH OTHER SKIN ULCER; L98.499 - NON-PRESSURE CHRONIC ULCER OF SKIN OF SITES W UNSP SEVERITY SNOMED Code(s): 58419717
[2022-01-18] MEDS: CHOLECALCIFEROL 25 MCG (1000 IU) TABLET PO SCH (08:56)
[2022-01-18] MEDS: VIT A,C & E-LUTEIN-MINERALS 1 EACH TAB PO SCH (08:56)
[2022-01-18] MEDS: LINAGLIPTIN 5 MG TABLET PO SCH (08:57)
[2022-01-18] MEDS: ASCORBIC ACID 500 MG TAB PO SCH (08:57)
[2022-01-18] MEDS: ZINC SULFATE 220 MG CAP PO SCH (08:57)
[2022-01-18] MEDS: GLIMEPIRIDE 4 MG TAB PO SCH (08:57)
[2022-01-18] MEDS: FERROUS SULFATE 325 MG TAB PO SCH (08:57)
[2022-01-18] MEDS: lisinopriL 10 MG TAB PO SCH (08:57)
[2022-01-18] MEDS: APIXABAN 2.5 MG TABLET PO SCH ×2 (08:57→21:30)
[2022-01-18] MEDS: MULTIVITAMINS, THERA 1 EACH TAB PO SCH (08:57)
[2022-01-18] MEDS: RITONAVIR PO SCH ×2 (08:59→20:11)
[2022-01-18] MEDS: NIRMATRELVIR PO SCH ×2 (08:59→20:11)
[2022-01-18] MEDS ORDERED: HYDROPHILIC CREAM 180 GM TUBE TOPICAL SCH (09:00)
--- NOTE | 2022-01-18 11:47 | P.PN ---
Subjective Progress Note Date: 01/17/22 Principal diagnosis: COVID 19 infection Diabetes mellitus with marked hyperglycemia related to steroid use Dehydration likely related to hyperglycemia 86-year-old male patient of Dr. Hughes with past medical history of Diabetes mellitus type 2, hypertension, hyperlipidemia, paroxysmal atrial fibrillation, dysphagia, polio affecting the right side. Patient was treated at [facility] after a fall where he laid on the ground for 3 days. Police had to break into his home to get him out. There was loss of consciousness and he had hit his head. Patient was treated at [facility] and then transferred to [facility] for subacute rehab. Patient was subsequently found to be positive test for Covid 19 and was started on Paxlovid, dexamethasone, vitamin C and zinc. Patient subsequently developed a high blood sugar which registered as "HI" on 2 draws, patient received additional 12 units of Humulin insulin at suppertime but again when rechecked CBG was high and patient was transferred into the hospital for further evaluation. Patient denies any symptoms of Covid. 01/16/2022 --the patient is clinically stable. No complaints. Remains on room air oxygen. Blood sugars are under better control. No other active issues for now. No nausea. No vomiting. No emesis. -- Patient has been started on Paxlovid pulmonary recommendations and Decadron is discontinued; blood sugars markedly improved since Decadron is discontinued - Inflammatory markers are monitor and reveal LDH of 595, CRP of 1.2 and d-dimer of 1.97 - Patient remains on anticoagulants Can be transferred back to F in next 24 hours if hyperglycemia has resolved 01/17/22 Patient is currently resting in the bed. Awake alert and oriented 3. Cur rently stable on room air. No compressive chest pain or shortness of breath. Was treated with Paxil overnight and dexamethasone as an outpatient. DEXA visit has been discontinued. Blood sugars better controlled now. Patient has been afebrile. On antibiotics with thin liquids due to paroxysmal atrial fibrillation. No other acute overnight issues. Anticipate discharged to rehab in the next 24 hours. Current medications reviewed. Objective - Vital Signs Vital signs: Vital Signs Temp 98.0 F 01/17/22 08:00 Pulse 88 01/17/22 08:00 Resp 14 01/17/22 08:00 BP 110/52 01/17/22 08:00 Pulse Ox 97 01/17/22 08:00 FiO2 Intake & Output 01/16/22 01/17/22 01/17/22 18:59 06:59 18:59 Intake Total 770 140 218 Output Total 400 750 500 Balance 370 610 -911 Weight 67.5 kg Intake: IV 10 20 10 Invasive Line 1 10 20 10 Oral 760 120 208 Output: Urine 400 750 500 Other: Voiding Method Diaper Diaper # Voids 1 # Bowel Movements 1 - Exam PHYSICAL EXAMINATION: GENERAL: The patient is alert and oriented x3, not in any acute distress. Well developed, well nourished. HEENT: Pupils are round and equally reacting to light. EOMI. No scleral icterus. No conjunctival pallor. Normocephalic, atraumatic. No pharyngeal erythema. No thyromegaly. CARDIOVASCULAR: S1 and S2 present. No murmurs, rubs, or gallops. PULMONARY: Chest is clear to auscultation, no wheezing or crackles. ABDOMEN: Soft, nontender, nondistended, normoactive bowel sounds. No palpable organomegaly. MUSCULOSKELETAL: No joint swelling or deformity. EXTREMITIES: No cyanosis, clubbing, or pedal edema. NEUROLOGICAL: Gross neurological examination did not reveal any focal deficits. SKIN: No rashes. - Labs CBC & Chem 7: 01/15/22 05:46 01/15/22 05:46 Labs: Abnormal Lab Results - Last 24 Hours (Table) 01/16/22 01/16/22 01/17/22 Range/Units 16:43 20:53 06:15 POC Glucose (mg/dL) 69 L 165 H 65 L (75-99) mg/dL 01/17/22 Range/Units 11:51 POC Glucose (mg/dL) 176 H (75-99) mg/dL Assessment and Plan Assessment: 1. COVID 19 infection, was being treated with Paxlovid and Decadron on an outpatient basis, no indication for pneumonia with hypoxemia this point in time and the patient presented to the hospital because of hyperglycemia, which could be potentially steroid-induced. Patient is currently on room air. DEXA was and has been discontinued. 2. Diabetes mellitus with a component of steroid-induced hyperglycemia improved now. 3. Dehydration, could be related to hyperglycemia 4 History of atrial fibrillation rate is controlled and the patient is on long- term medical condition with Eliquis, current rhythm is sinus 5. Hyperlipidemia 6. Hypertension 7. Severe aortic stenosis with a preserved LV function. The patient has a mean gradient of 39 and a peak gradient of 68 across the aortic valve. 8. Pancytopenia, rule out underlying bone marrow suppression/mild dysplasia/myelofibrosis Clinically stable blood sugars under better control No issues with breathing or oxygenation Inflammatory markers are low with an LDL level of 595 and a CRP of 1.2 and a d- dimer of 1.97 Patient is on anticoagulants Dropped IV fluids to 50 mL an hour of normal saline May go back to ECF in a.m. if no changes. Time with Patient: Greater than 30
[2022-01-18 11:59] LABS: Glucose,Whole Blood 127 mg/dL (75-99)
[2022-01-18 12:35] LABS: Basophils % (A) 0 %; Eosinophils % (A) 1 %; Lymphocytes # (A) 0.8 k/uL (1.0-4.8); Lymphocytes % (A) 16 %; MCH 32.9 pg (25.0-35.0); MCHC 33.3 g/dL (31.0-37.0); MCV 98.7 fL (80.0-100.0); Macrocytosis Slight; Mean Platelet Volume 7.5; Monocytes # (A) 0.4 k/uL (0-1.0); Monocytes % (A) 8 %; Neutrophils # (A) 3.9 k/uL (1.3-7.7); Neutrophils % (A) 74 %; Poikilocytosis Slight; RBC 3.65 m/uL (4.30-5.90); RDW 15.3 % (11.5-15.5); WBC 5.2 k/uL (3.8-10.6)
[2022-01-18 12:36] LABS: Calcium 8.2 mg/dL (8.4-10.2); Potassium 4.8 mmol/L (3.5-5.1)
[2022-01-18 12:39] LABS: Platelet Count 195 k/uL (150-450)
[2022-01-18 14:14] VITALS: BMI 24.0
[2022-01-18 16:24] LABS: Glucose,Whole Blood 91 mg/dL (75-99)
[2022-01-18 20:12] LABS: Glucose,Whole Blood 89 mg/dL (75-99)
[2022-01-18] MEDS: PRAVASTATIN SODIUM 40 MG TAB PO SCH (21:29)
[2022-01-18] MEDS: HYDROPHILIC CREAM 180 GM TUBE TOPICAL SCH (21:30)
[2022-01-19 06:25] LABS: Glucose,Whole Blood 74 mg/dL (75-99)
[2022-01-19] MEDS: INSULIN ASPART (NovoLOG) 100 UNIT/ML VIAL SQ SCH ×4 (06:39→20:18)
[2022-01-19] MEDS: LEVOTHYROXINE 100 MCG TAB PO SCH (06:43)
[2022-01-19] MEDS: DIGOXIN 125 MCG TAB PO SCH (06:43)
[2022-01-19] MEDS: PANTOPRAZOLE 40 MG TABLET PO SCH (06:43)
[2022-01-19] MEDS: ARTIFICIAL TEARS-HYPROMELLOSE DROPS 15 ML BTL BOTH EYES SCH ×3 (06:50→20:16)
[2022-01-19] MEDS: INSULIN DETEMIR (LEVEMIR) 100 UNIT/ML SYR SQ SCH (08:42)
[2022-01-19] MEDS: NIRMATRELVIR PO SCH ×2 (08:42→20:12)
[2022-01-19] MEDS: RITONAVIR PO SCH ×2 (08:42→20:12)
[2022-01-19] MEDS: APIXABAN 2.5 MG TABLET PO SCH ×2 (08:46→20:17)
[2022-01-19] MEDS: LINAGLIPTIN 5 MG TABLET PO SCH (08:47)
[2022-01-19] MEDS: ASCORBIC ACID 500 MG TAB PO SCH (08:47)
[2022-01-19] MEDS: ZINC SULFATE 220 MG CAP PO SCH (08:47)
[2022-01-19] MEDS: VIT A,C & E-LUTEIN-MINERALS 1 EACH TAB PO SCH (08:47)
[2022-01-19] MEDS: lisinopriL 10 MG TAB PO SCH (08:47)
[2022-01-19] MEDS: FERROUS SULFATE 325 MG TAB PO SCH (08:47)
[2022-01-19] MEDS: CHOLECALCIFEROL 25 MCG (1000 IU) TABLET PO SCH (08:47)
[2022-01-19] MEDS: MULTIVITAMINS, THERA 1 EACH TAB PO SCH (08:47)
[2022-01-19] MEDS: GLIMEPIRIDE 4 MG TAB PO SCH (08:47)
[2022-01-19 10:45] LABS: Basophils % (A) 0 %; Eosinophils % (A) 1 %; HCT 36.9 % (39.0-53.0); HGB 12.1 gm/dL (13.0-17.5); Lymphocytes % (A) 16 %; MCH 32.4 pg (25.0-35.0); MCHC 32.8 g/dL (31.0-37.0); MCV 98.8 fL (80.0-100.0); Macrocytosis Slight; Mean Platelet Volume 7.7; Monocytes # (A) 0.5 k/uL (0-1.0); Monocytes % (A) 8 %; Neutrophils # (A) 4.5 k/uL (1.3-7.7); Neutrophils % (A) 74 %; Platelet Count 208 k/uL (150-450); Poikilocytosis Slight; RBC 3.74 m/uL (4.30-5.90); RDW 15.7 % (11.5-15.5); WBC 6.1 k/uL (3.8-10.6)
[2022-01-19 11:03] LABS: C Reactive Protein 1.1 mg/dL (<1.0); Calcium 8.4 mg/dL (8.4-10.2); Potassium 4.7 mmol/L (3.5-5.1)
[2022-01-19 11:51] LABS: Glucose,Whole Blood 205 mg/dL (75-99)
--- NOTE | 2022-01-19 13:53 | P.PN ---
Subjective Progress Note Date: 01/18/22 Principal diagnosis: COVID 19 infection Diabetes mellitus with marked hyperglycemia related to steroid use Dehydration likely related to hyperglycemia 86-year-old male patient of Dr. Hughes with past medical history of Diabetes mellitus type 2, hypertension, hyperlipidemia, paroxysmal atrial fibrillation, dysphagia, polio affecting the right side. Patient was treated at [facility] after a fall where he laid on the ground for 3 days. Police had to break into his home to get him out. There was loss of consciousness and he had hit his head. Patient was treated at [facility] and then transferred to [facility] for subacute rehab. Patient was subsequently found to be positive test for Covid 19 and was started on Paxlovid, dexamethasone, vitamin C and zinc. Patient subsequently developed a high blood sugar which registered as "HI" on 2 draws, patient received additional 12 units of Humulin insulin at suppertime but again when rechecked CBG was high and patient was transferred into the hospital for further evaluation. Patient denies any symptoms of Covid. 01/16/2022 --the patient is clinically stable. No complaints. Remains on room air oxygen. Blood sugars are under better control. No other active issues for now. No nausea. No vomiting. No emesis. -- Patient has been started on Paxlovid pulmonary recommendations and Decadron is discontinued; blood sugars markedly improved since Decadron is discontinued - Inflammatory markers are monitor and reveal LDH of 595, CRP of 1.2 and d-dimer of 1.97 - Patient remains on anticoagulants Can be transferred back to F in next 24 hours if hyperglycemia has resolved 01/17/22 Patient is currently resting in the bed. Awake alert and oriented 3. Cur rently stable on room air. No compressive chest pain or shortness of breath. Was treated with Paxil overnight and dexamethasone as an outpatient. DEXA visit has been discontinued. Blood sugars better controlled now. Patient has been afebrile. On antibiotics with thin liquids due to paroxysmal atrial fibrillation. No other acute overnight issues. Anticipate discharged to rehab in the next 24 hours. Current medications reviewed. 01/19/2012 Patient is currently lying in the bed. Awake and alert. No complaints of chest pain. Currently on room air. No nausea vomiting abdominal pain or diarrhea. Patient is tolerating oral diet slowly. Otherwise feels weak. Continue the vitamin supplementation and blood sugar is better controlled now. No Episodes of hypoglycemia. Anticipate discharged to rehab soon. Patient was seen by wound care team for stage II acute process. Objective - Vital Signs Vital signs: Vital Signs Temp 97.0 F L 01/18/22 16:00 Pulse 99 01/18/22 16:00 Resp 14 01/18/22 16:00 BP 110/62 01/18/22 16:00 Pulse Ox 97 01/18/22 16:00 FiO2 Intake & Output 01/18/22 01/18/22 01/19/22 06:59 18:59 06:59 Intake Total 220 120 Output Total 2750 1200 Balance -2530 -1080 Weight 67.5 kg Intake: Oral 220 120 Output: Urine 2750 1200 Other: Voiding Method Diaper Diaper - Exam PHYSICAL EXAMINATION: GENERAL: The patient is alert and oriented x3, not in any acute distress. Well developed, well nourished. HEENT: Pupils are round and equally reacting to light. EOMI. No scleral icterus. No conjunctival pallor. Normocephalic, atraumatic. No pharyngeal erythema. No thyromegaly. CARDIOVASCULAR: S1 and S2 present. No murmurs, rubs, or gallops. PULMONARY: Chest is clear to auscultation, no wheezing or crackles. ABDOMEN: Soft, nontender, nondistended, normoactive bowel sounds. No palpable organomegaly. MUSCULOSKELETAL: No joint swelling or deformity. EXTREMITIES: No cyanosis, clubbing, or pedal edema. NEUROLOGICAL: Gross neurological examination did not reveal any focal deficits. SKIN: No rashes. - Labs CBC & Chem 7: 01/19/22 10:18 01/19/22 10:18 Labs: Abnormal Lab Results - Last 24 Hours (Table) 01/18/22 01/18/22 01/18/22 Range/Units 11:53 11:53 11:58 RBC 3.65 L (4.30-5.90) m/uL Hgb 12.0 L (13.0-17.5) gm/dL Hct 36.0 L (39.0-53.0) % Lymphocytes # 0.8 L (1.0-4.8) k/uL Sodium 136 L (137-145) mmol/L BUN 36 H (9-20) mg/dL Glucose 113 H (74-99) mg/dL POC Glucose (mg/dL) 127 H (75-99) mg/dL Calcium 8.2 L (8.4-10.2) mg/dL Assessment and Plan Assessment: 1. COVID 19 infection, was being treated with Paxlovid and Decadron on an outpatient basis, no indication for pneumonia with hypoxemia this point in time and the patient presented to the hospital because of hyperglycemia, which could be potentially steroid-induced. Patient is currently on room air. DEXA was and has been discontinued. 2. Diabetes mellitus with a component of steroid-induced hyperglycemia improved now. 3. Dehydration, could be related to hyperglycemia 4 History of atrial fibrillation rate is controlled and the patient is on long- term medical condition with Eliquis, current rhythm is sinus 5. Hyperlipidemia 6. Hypertension 7. Severe aortic stenosis with a preserved LV function. The patient has a mean gradient of 39 and a peak gradient of 68 across the aortic valve. 8. Pancytopenia, rule out underlying bone marrow suppression/mild dysplasia/myelofibrosis Clinically stable blood sugars under better control No issues with breathing or oxygenation Inflammatory markers are low with an LDL level of 595 and a CRP of 1.2 and a d- dimer of 1.97 Patient is on anticoagulants Dropped IV fluids to 50 mL an hour of normal saline May go back to ECF in a.m. if no changes. Time with Patient: Greater than 30
--- NOTE | 2022-01-19 14:51 | P.DS ---
Providers Date of admission: 01/14/22 23:12 Expected date of discharge: 01/19/22 Attending physician: Mara Lopez Consults: 01/14/22 23:12 Consult Physician Routine Consulting Provider: Yobani Moore Consult Reason/Comments: elevTrop Do you want consulting provider notified?: Yes 01/14/22 23:37 Consult Physician Routine Consulting Provider: Angus Gleason Consult Reason/Comments: covid Do you want consulting provider notified?: Yes 01/14/22 23:38 Consult Physician Routine Consulting Provider: Yobani Moore Consult Reason/Comments: elevTrop Do you want consulting provider notified?: Yes Primary care physician: Mara Lopez Hospital Course: Discharge diagnosis 1. COVID 19 infection, was being treated with Paxlovid and Decadron on an outpatient basis, no indication for pneumonia with hypoxemia this point in time and the patient presented to the hospital because of hyperglycemia, which could be potentially steroid-induced. Patient is currently on room air. DEXA was and has been discontinued. Blood sugar is better controlled now. 2. Diabetes mellitus with a component of steroid-induced hyperglycemia improved now. Controlled now. 3. Dehydration, could be related to hyperglycemia 4 History of atrial fibrillation rate is controlled and the patient is on long- term medical condition with Eliquis, maintained on sinus rhythm currently. 5. Hyperlipidemia 6. Hypertension 7. Severe aortic stenosis with a preserved LV function. The patient has a mean gradient of 39 and a peak gradient of 68 across the aortic valve. 8. Pancytopenia, rule out underlying bone marrow suppression/mild dysplasia/myelofibrosis Hospital course 86-year-old male patient of Dr. Hughes with past medical history of Diabetes mellitus type 2, hypertension, hyperlipidemia, paroxysmal atrial fibrillation, dysphagia, polio affecting the right side. Patient was treated at [facility] after a fall where he laid on the ground for 3 days. Police had to break into his home to get him out. There was loss of consciousness and he had hit his head. Patient was treated at [facility] and then transferred to [facility] for subacute rehab. Patient was subsequently found to be positive test for Covid 19 and was started on Paxlovid, dexamethasone, vitamin C and zinc. Patient subsequently developed a high blood sugar which registered as "HI" on 2 draws, patient received additional 12 units of Humulin insulin at suppertime but again when rechecked CBG was high and patient was transferred into the hospital for further evaluation. Patient denies any symptoms of Covid. 01/16/2022 --the patient is clinically stable. No complaints. Remains on room air oxygen. Blood sugars are under better control. No other active issues for now. No nausea. No vomiting. No emesis. -- Patient has been started on Paxlovid pulmonary recommendations and Decadron is discontinued; blood sugars markedly improved since Decadron is discontinued - Inflammatory markers are monitor and reveal LDH of 595, CRP of 1.2 and d-dimer of 1.97 - Patient remains on anticoagulants Can be transferred back to [facility] in next 24 hours if hyperglycemia has resolved 01/17/22 Patient is currently resting in the bed. Awake alert and oriented 3. Currently stable on room air. No compressive chest pain or shortness of breath. Was treated with Paxil overnight and dexamethasone as an outpatient. DEXA visit has been discontinued. Blood sugars better controlled now. Patient has been afebrile. On antibiotics with thin liquids due to paroxysmal atrial fibrillation. No other acute overnight issues. Anticipate discharged to rehab in the next 24 hours. Current medications reviewed. 01/19/2012 Patient is currently lying in the bed. Awake and alert. No complaints of chest pain. Currently on room air. No nausea vomiting abdominal pain or diarrhea. Patient is tolerating oral diet slowly. Otherwise feels weak. Continue the vitamin supplementation and blood sugar is better controlled now. No Episodes of hypoglycemia. Anticipate discharged to rehab soon. Patient was seen by wound care team for stage II acute process. 01/19/2022 Patient is requesting the bed comfortably. No complaints of chest pain or shortness of breath. Awake alert. Currently improvement. No nausea vomiting abdominal pain or diarrhea. Tolerating oral diet. Patient completed a 5 day course of Paxil and. Blood sugars controlled. Patient is being discharged to rehab today. Continue the wound care for decubitus ulcers. PHYSICAL EXAMINATION: GENERAL: The patient is alert and oriented x3, not in any acute distress. Well developed, well nourished. HEENT: Pupils are round and equally reacting to light. EOMI. No scleral icterus. No conjunctival pallor. Normocephalic, atraumatic. No pharyngeal erythema. No thyromegaly. CARDIOVASCULAR: S1 and S2 present. No murmurs, rubs, or gallops. PULMONARY: Chest is clear to auscultation, no wheezing or crackles. ABDOMEN: Soft, nontender, nondistended, normoactive bowel sounds. No palpable organomegaly. MUSCULOSKELETAL: No joint swelling or deformity. EXTREMITIES: No cyanosis, clubbing, or pedal edema. NEUROLOGICAL: Gross neurological examination did not reveal any focal deficits. SKIN: No rashes. Diabetes panel 01/19/22 Range/Units 10:18 Sodium 136 L (137-145) mmol/L Potassium 4.7 (3.5-5.1) mmol/L Chloride 106 (98-107) mmol/L Carbon Dioxide 25 (22-30) mmol/L BUN 31 H (9-20) mg/dL Creatinine 0.97 (0.66-1.25) mg/dL Glucose 195 H (74-99) mg/dL Calcium 8.4 (8.4-10.2) mg/dL Calcium panel 01/19/22 Range/Units 10:18 Calcium 8.4 (8.4-10.2) mg/dL Pituitary panel 01/19/22 Range/Units 10:18 Sodium 136 L (137-145) mmol/L Potassium 4.7 (3.5-5.1) mmol/L Chloride 106 (98-107) mmol/L Carbon Dioxide 25 (22-30) mmol/L BUN 31 H (9-20) mg/dL Creatinine 0.97 (0.66-1.25) mg/dL Glucose 195 H (74-99) mg/dL Calcium 8.4 (8.4-10.2) mg/dL Adrenal panel 01/19/22 Range/Units 10:18 Sodium 136 L (137-145) mmol/L Potassium 4.7 (3.5-5.1) mmol/L Chloride 106 (98-107) mmol/L Carbon Dioxide 25 (22-30) mmol/L BUN 31 H (9-20) mg/dL Creatinine 0.97 (0.66-1.25) mg/dL Glucose 195 H (74-99) mg/dL Calcium 8.4 (8.4-10.2) mg/dL Vital Signs 01/19/22 01/19/22 01/19/22 08:00 08:40 11:59 Temperature 97.4 F L Pulse Rate [ 110 H 110 H 107 H Pulse Oximetery ] Respiratory 18 20 Rate Blood Pressure 116/62 131/61 [Left Arm] O2 Sat by Pulse 100 97 Oximetry 01/19/22 13:27 Temperature Pulse Rate [ 107 H Pulse Oximetery ] Respiratory Rate Blood Pressure [Left Arm] O2 Sat by Pulse Oximetry Total time taken greater than 35 minutes including 18 minutes for counseling and coordination of care. Patient Condition at Discharge: Fair Plan - Discharge Summary Discharge Rx Participant: No New Discharge Prescriptions: Continue Insulin Lispro [humaLOG Kwikpen] See Protocol SQ ACHS Levothyroxine Sodium [Synthroid] 100 mcg PO DAILY@0600 Multivitamins, Thera [Multivitamin (formulary)] 1 tab PO DAILY Linagliptin [Tradjenta] 5 mg PO DAILY Digoxin [Lanoxin] 125 mcg PO DAILY@0600 Cholecalciferol [Vitamin D3 (25 Mcg = 1000 Iu)] 50 mcg PO DAILY Acetaminophen Tab [Tylenol] 650 mg PO Q4H PRN PRN Reason: Pain Propylene Glycol/Peg 400/Pf [Systane 0.3-0.4% Eye Drop] 1 drop BOTH EYES TID@0600,1400,2200 Glucerna Shake 1 can PO TID Apixaban [Eliquis] 2.5 mg PO BID Zinc 50 mg PO DAILY Vit C/E/Zn/Coppr/Lutein/Zeaxan [Preservision Areds 2 Softgel] 1 cap PO DAILY Pravastatin Sodium [Pravachol] 40 mg PO HS Lisinopril [Prinivil] 10 mg PO DAILY Glimepiride [Amaryl] 4 mg PO DAILY Ferrous Sulfate [Iron] 325 mg PO DAILY Ascorbic Acid [Vitamin C] 500 mg PO DAILY Discontinued Pseudoephedrine HCl [Sudafed] 30 mg PO TID Nirmatrelvir/Ritonavir [Paxlovid Co-Pack (Eua)] 1 tab PO BID Methyl Salicylate/Menth/Camph [Salonpas 3.1%-6.0%-10.0% Patch] 1 patch TOPICAL DAILY dexAMETHasone 6 mg PO DAILY Discharge Medication List Acetaminophen Tab [Tylenol] 650 mg PO Q4H PRN 01/14/22 [History] Apixaban [Eliquis] 2.5 mg PO BID 01/14/22 [History] Ascorbic Acid [Vitamin C] 500 mg PO DAILY 01/14/22 [History] Cholecalciferol [Vitamin D3 (25 Mcg = 1000 Iu)] 50 mcg PO DAILY 01/14/22 [History] Digoxin [Lanoxin] 125 mcg PO DAILY@0600 01/14/22 [History] Ferrous Sulfate [Iron] 325 mg PO DAILY 01/14/22 [History] Glimepiride [Amaryl] 4 mg PO DAILY 01/14/22 [History] Glucerna Shake 1 can PO TID 01/14/22 [History] Insulin Lispro [humaLOG Kwikpen] See Protocol SQ ACHS 01/14/22 [History] Levothyroxine Sodium [Synthroid] 100 mcg PO DAILY@0600 01/14/22 [History] Linagliptin [Tradjenta] 5 mg PO DAILY 01/14/22 [History] Lisinopril [Prinivil] 10 mg PO DAILY 01/14/22 [History] Multivitamins, Thera [Multivitamin (formulary)] 1 tab PO DAILY 01/14/22 [History] Pravastatin Sodium [Pravachol] 40 mg PO HS 01/14/22 [History] Propylene Glycol/Peg 400/Pf [Systane 0.3-0.4% Eye Drop] 1 drop BOTH EYES TID@06 00,1400,2200 01/14/22 [History] Vit C/E/Zn/Coppr/Lutein/Zeaxan [Preservision Areds 2 Softgel] 1 cap PO DAILY 01/14/22 [History] Zinc 50 mg PO DAILY 01/14/22 [History] Follow up Appointment(s)/Referral(s): Alejandro Asencio MD [STAFF PHYSICIAN] - 2 Weeks aMra Lopez MD [Primary Care Provider] - 1-2 days Activity/Diet/Wound Care/Special Instructions: Cardiology Instructions: Please follow up outpatient with product lister for further evaluation of your aortic valve Discharge Disposition: TRANSFER TO SNF/ECF
[2022-01-19 16:52] LABS: Glucose,Whole Blood 268 mg/dL (75-99)
[2022-01-19] MEDS: HYDROPHILIC CREAM 180 GM TUBE TOPICAL SCH (20:12)
[2022-01-19] MEDS: PRAVASTATIN SODIUM 40 MG TAB PO SCH (20:17)
[2022-01-19 20:19] LABS: Glucose,Whole Blood 352 mg/dL (75-99)
[2022-01-19 21:01] VITALS: BP 96/55; PULSE 112; RESP 16; TEMP 98.3
== END 2022-01-19 20:50 | DRG 637 ==
LOC: EC 20:23 → 3SCARD 23:12
PROVIDERS: ADMIT Family Medicine; ATTEND Family Medicine
DX: E11.00 Type 2 diabetes mellitus with hyperosmolarity without nonketotic hyperglycemic-hyperosmolar coma (NKHHC) (principal); U07.1 COVID-19; D61.818 Other pancytopenia; E44.0 Moderate protein-calorie malnutrition; J90 Pleural effusion, not elsewhere classified; L97.921 Non-pressure chronic ulcer of unspecified part of left lower leg limited to breakdown of skin; L97.911 Non-pressure chronic ulcer of unspecified part of right lower leg limited to breakdown of skin; R77.8 Other specified abnormalities of plasma proteins; I08.0 Rheumatic disorders of both mitral and aortic valves; I48.0 Paroxysmal atrial fibrillation; E78.5 Hyperlipidemia, unspecified; E03.9 Hypothyroidism, unspecified; E86.0 Dehydration; I44.0 Atrioventricular block, first degree; I87.2 Venous insufficiency (chronic) (peripheral); L89.152 Pressure ulcer of sacral region, stage 2; T38.0X5A Adverse effect of glucocorticoids and synthetic analogues, initial encounter; I11.9 Hypertensive heart disease without heart failure; E11.622 Type 2 diabetes mellitus with other skin ulcer; R13.10 Dysphagia, unspecified; Z71.3 Dietary counseling and surveillance; Z86.12 Personal history of poliomyelitis; Z98.890 Other specified postprocedural states; Z87.39 Personal history of other diseases of the musculoskeletal system and connective tissue; Z79.4 Long term (current) use of insulin; Z79.84 Long term (current) use of oral hypoglycemic drugs; Z79.01 Long term (current) use of anticoagulants; Z79.899 Other long term (current) drug therapy; Z79.890 Hormone replacement therapy; Z91.81 History of falling; Z87.828 Personal history of other (healed) physical injury and trauma
CPT/HCPCS: 36415; 71045; 80048; 80053; 81003; 82009; 82803; 83605; 83615; 83735; 83880; 84100; 84484; 85025; 85379; 85610; 85730; 86140; 87635; 93005; 93306; 96361; 96374; 99285